=== PATIENT | male | born 1940 | race Caucasian/White ===

== ENCOUNTER 2017-06-24 20:01 | Emergency (ER) | payer MEDICARE ==
[~2017-06-24] VITALS: Ht 188 cm; Wt 95.3 kg
[2017-06-24] MEDS ORDERED: KETOROLAC TROMETHAMINE 30 MG/ML VIAL IM STA (20:20)
[2017-06-24] MEDS ORDERED: DEXAMETHASONE SOD PHOS 10 MG/1 ML VIAL INJ ONE (20:30)
[2017-06-24] MEDS ORDERED: COLCHICINE 0.6 MG TAB PO STA (21:10)
--- NOTE | 2017-06-24 21:30 | Diagnostic Imaging Report ---
WRIST COMPLETE LEFT HISTORY: Wrist pain and swelling COMPARISON: None FINDINGS: Bones: No displaced fracture. Osseous alignment is within normal limits. Mild mineralization Joints: The joint spaces are well-maintained. Soft tissues: Diffuse soft tissue swelling more significant at the dorsal aspect of the left wrist IMPRESSION: 1. No acute osseous abnormality. 2. Soft tissue swelling at the dorsum of the left wrist Signed by: Dr. Wilson Scott M.D. on 06/24/2017 9:26 PM
[2017-06-24 22:15] VITALS: BP 162/84
== END 2017-06-24 22:46 | disposition home or self-care (01) ==
LOC: ER 20:01
DX: M25.532 Pain in left wrist (principal); M10.032 Idiopathic gout, left wrist; I10 Essential (primary) hypertension; E03.9 Hypothyroidism, unspecified
CPT/HCPCS: 36415; 73110; 84550; 96372; 99284; J1100; J1885

== ENCOUNTER 2017-08-31 10:08 | Emergency (ER) | payer MEDICARE ==
[~2017-08-31] VITALS: Ht 188 cm; Wt 95.3 kg
--- OUTSIDE RECORDS SUMMARY | 2017-08-31 10:10 | XMS REPORT ---
Author [facility] Address Unknown Phone Unavailable Care Team Providers Care Outbound Telemarketer Name Role Phone ADITHYA GALVEZ Unavailable Unavailable Problems This patient has no known problems. Allergies, Adverse Reactions, Alerts This patient has no known allergies or adverse reactions. Medications This patient has no known medications. Results Test Description Test Time Test Comments Text Results Atomic Results Result Comments WRIST COMPLETE LEFT [place] [id number] Patient Name: Bethel SHAH JR MR #: [id number] : 1940 Age/Sex: 76/M Req # : [id number] Adm Physician: Ordered by: ADITHYA GALVEZ MD Report #: [id number] Location: ER Room/Bed: Procedure: [id number] DX/WRIST COMPLETE LEFT Exam Date: Exam Time: REPORT STATUS: Signed WRIST COMPLETE LEFT HISTORY: Wrist pain and swelling COMPARISON: None FINDINGS: Bones: No displaced fracture. Osseous alignment is within normal limits. Mild mineralization Joints: The joint spaces are well-maintained. Soft tissues: Diffuse soft tissue swelling more significant at the dorsal aspect of the left wrist IMPRESSION: 1. No acute osseous abnormality. 2. Soft tissue swelling at the dorsum of the left wrist Signed by: Dr. Wilson Scott M.D. on 06/24/2017 9:26 PM Dictated By: WILSON BREAUX MD 25 Transcribed By: LAZARUS on 06/24/172125 COPY TO: ADITHYA GALVEZ MD
[2017-08-31] MEDS ORDERED: MORPHINE SULFATE 2 MG/ML SYR IV STA (10:25)
[2017-08-31] MEDS ORDERED: ONDANSETRON HCL INJ 2 MG/ML VIAL IV STA (10:25)
[2017-08-31] MEDS ORDERED: SODIUM CHLORIDE 0.9% 1000ML 1,000 ML IV STA (10:25)
[2017-08-31] MEDS ORDERED: COLCHICINE 0.6 MG TAB PO ONE ×2 (10:30→11:00)
[2017-08-31 11:16] LABS: BASOPHILS % 0.3 % (0.0-1.0); EOSINOPHILS % 0.2 % (0.0-6.0); HEMATOCRIT 40.6 % (38.2-49.6); HEMOGLOBIN 13.4 g/dL (14.0-18.0); LYMPHOCYTES # (AUTO) 1.7 (1.0-3.2); LYMPHOCYTES % 17.9 % (18.0-39.1); MEAN CORPUSCULAR HEMOGLOBIN 30.9 pg (28-32); MEAN CORPUSCULAR VOLUME 93.5 fL (81-99); MONOCYTES # (AUTO) 1.4 (0.2-0.8); MONOCYTES % 14.4 % (4.4-11.3); NEUTROPHILS # (AUTO) 6.4 (2.1-6.9); NEUTROPHILS % 66.6 % (38.7-80.0); PLATELET COUNT 178 x10e3/uL (140-360); RED BLOOD COUNT 4.34 x10e6/uL (4.3-5.7); RED CELL DISTRIBUTION WIDTH 13.4 % (11.7-14.4)
--- NOTE | 2017-08-31 11:22 | Diagnostic Imaging Report ---
EXAM: WRIST COMPLETE RIGHT DATE: 08/31/2017 10:25 AM INDICATION: Wrist/thumb pain. Possible gout. 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 There is a tiny well-corticated ossific density adjacent to the ulnar styloid. No acute fracture is identified. No significant soft tissue abnormality is present. Faint lucency in the scaphoid waist is well-corticated suggesting vascular channel. IMPRESSION: Chronic appearing changes as above. No definite acute finding. Signed by: Dr. Ronald Knight MD on 08/31/2017 11:19 AM
[2017-08-31 11:35] LABS: ALBUMIN 3.3 g/dL (3.5-5.0); ANION GAP 14.1 mmol/L (8-16); CALCIUM 8.9 mg/dL (8.4-10.2); CREATININE, SERUM 2.2 mg/dL (0.72-1.25); MAGNESIUM 1.6 MG/DL (1.3-2.1); POTASSIUM 4.1 mmol/L (3.5-5.1)
== END 2017-08-31 12:25 | disposition home or self-care (01) ==
LOC: ER 10:08
DX: M25.531 Pain in right wrist (principal); M10.031 Idiopathic gout, right wrist; N18.9 Chronic kidney disease, unspecified; I10 Essential (primary) hypertension; E11.9 Type 2 diabetes mellitus without complications; I51.9 Heart disease, unspecified
CPT/HCPCS: 36415; 73110; 80053; 83735; 84550; 85025; 99284; J2270; J2405; J7030

== ENCOUNTER 2018-03-05 19:20 | Inpatient (IN) | payer MEDICARE ==
[~2018-03-05] VITALS: Ht 188 cm; Wt 92.2 kg
[2018-03-05] MEDS ORDERED: HYDRALAZINE HCL 20 MG/ML VIAL ONE (20:03)
[2018-03-05] MEDS ORDERED: HYDRALAZINE HCL 20 MG/ML VIAL IV STA (20:05)
--- NOTE | 2018-03-05 20:36 | Diagnostic Imaging Report ---
EXAMINATION: Head CT without contrast. HISTORY:Headache. COMPARISON:None. TECHNIQUE: Multidetector axial images were obtained from the foramen magnum to the vertex without contrast. The images were reconstructed using brain and bone algorithms. Thin section brain images were reformatted into coronal and sagittal planes. Dose modulation, iterative reconstruction, and/or weight based adjustment of the mA/kV was utilized to reduce the radiation dose to as low as reasonably achievable. Intravenous contrast: None IMAGE QUALITY: Acceptable. FINDINGS: Skull/scalp: No lytic or blastic. lesions. No surgical changes. Parenchyma: Nonspecific bilateral frontoparietal patchy white matter hypodensity are likely related to small vessel ischemic changes. No acute hemorrhage, mass or acute major vascular territorial infarct. Arteries: No density suggestive of thrombosis. Dural sinuses: No abnormal density suggestive of thrombosis. Ventricles: Moderate compensated dilatation due to volume loss. No hydrocephalus. Extra-axial spaces: No abnormal density. Brain volume: Generalized age-related cerebral volume loss. Craniocervical junction: No mass, Chiari malformation, or basilar invagination. Sella: No mass. Paranasal/mastoid sinuses: Imaged portions unremarkable. IMPRESSION: No acute intracranial abnormality. Mild supratentorial white matter microvascular ischemic changes. Generalized age-related cerebral volume loss. Signed by: Dr. Delma Romero M.D. on 03/05/2018 8:33 PM
[2018-03-05 20:43] LABS: BASOPHILS % 0.5 % (0.0-1.0); EOSINOPHILS # (AUTO) 0.1 (0.0-0.4); EOSINOPHILS % 1.1 % (0.0-6.0); HEMATOCRIT 40.2 % (38.2-49.6); HEMOGLOBIN 13.2 g/dL (14.0-18.0); LYMPHOCYTES # (AUTO) 1.6 (1.0-3.2); MEAN CORPUSCULAR HEMOGLOBIN 31.1 pg (28-32); MEAN CORPUSCULAR HGB CONC 32.8 g/dL (31-35); MEAN CORPUSCULAR VOLUME 94.6 fL (81-99); NEUTROPHILS # (AUTO) 6.1 (2.1-6.9); NEUTROPHILS % 68.6 % (38.7-80.0); PLATELET COUNT 203 x10e3/uL (140-360); RED BLOOD COUNT 4.25 x10e6/uL (4.3-5.7); RED CELL DISTRIBUTION WIDTH 13.7 % (11.7-14.4)
--- NOTE | 2018-03-05 20:54 | Diagnostic Imaging Report ---
EXAMINATION: PA and lateral views of the chest. COMPARISON: None CLINICAL HISTORY: Left-sided weakness, neck pain, chest pain DISCUSSION: Lines/tubes: None. Lungs: Lungs are well-inflated. Ill-defined patchy opacity in the right lower lung on the frontal view,. Rest of the lungs is grossly clear. Pleura: There is no pleural effusion or pneumothorax. Heart and mediastinum: Cardiac silhouette is borderline to mildly enlarged. Pulmonary vasculature is normal. Bones and soft tissues: No acute bony abnormalities. Degenerative changes in the thoracic spine IMPRESSION: 1. Ill-defined patchy opacity in the right lower lung, which may represent pneumonia, in the appropriate clinical setting. Atelectasis or scarring are secondary considerations. Signed by: Dr. Venkat Mata M.D. on 03/05/2018 8:50 PM
[2018-03-05 21:01] LABS: ALBUMIN 3.4 g/dL (3.5-5.0); ALBUMIN/GLOBULIN RATIO 0.9 (0.8-2.0); ANION GAP 16.5 mmol/L (8-16); CALCIUM 9.2 mg/dL (8.4-10.2); CREATININE, SERUM 2.55 mg/dL (0.72-1.25); POTASSIUM 4.5 mmol/L (3.5-5.1)
[2018-03-05 21:08] LABS: CREATINE KINASE MB 1.6 ng/mL (0-5.0)
[2018-03-05] MEDS ORDERED: ASPIRIN ENTERI325 MG PO (22:00)
[2018-03-05] MEDS ORDERED: VITAMIN D31000 UNI1 PO (22:00)
[2018-03-05] MEDS ORDERED: TORSEMIDE10 MG PO (22:00)
[2018-03-05] MEDS ORDERED: VITAMIN B-1100 M1 PO (22:00)
[2018-03-06] MEDS: HYDRALAZINE HCL 20 MG/ML VIAL IV PRN ×3 (00:14→09:34)
[2018-03-06 01:30] VITALS: BP 135/63
[2018-03-06 04:00] VITALS: BP 186/78
[2018-03-06 08:00] VITALS: BP 172/79
[2018-03-06] MEDS: ACETAMINOPHEN 325 MG TAB PO PRN (09:34)
[2018-03-06] MEDS ORDERED: NIFEDIPINE CR 30 MG TAB PO SCH (11:45)
[2018-03-06 12:00] VITALS: BP 191/76
[2018-03-06] MEDS: LABETALOL HCL 100 MG TAB PO SCH ×2 (12:14→21:51)
[2018-03-06] MEDS ORDERED: ASPIRIN 325 MG TAB PO SCH (12:45)
--- NOTE | 2018-03-06 14:23 | History and Physical ---
PRIMARY CARE PHYSICIAN: Dr. Conrad CHIEF COMPLAINT: Right scalp pain. HISTORY OF PRESENT ILLNESS: This is a 77-year-old man with a history of pneumonia, ambulatory dysfunction and hypertension, now developing right scalp pain. He denies any dizziness, chest pain, or vision changes. He admits to some shortness of breath. Denies any fever, chills or sweats. Denies any focal weakness. Here CT scan of the brain was done, which was negative. He was found to have pneumonia. The patient was also confused on admission. He is admitted for further evaluation and management. PAST MEDICAL HISTORY: Hypertension, pneumonia, ambulatory dysfunction. PAST SURGICAL HISTORY: None. ALLERGIES: PER ELECTRONIC MEDICAL RECORD. FAMILY HISTORY/SOCIAL HISTORY: Patient is . He has 1 child. Quit alcohol. No cigarettes. MEDICATIONS: Per electronic medical record. REVIEW OF SYSTEMS: Denies any dizziness or chest pain. Denies any fever, chills, sweats, nausea, vomiting, diarrhea, leg pain. PHYSICAL EXAMINATION VITAL SIGNS: Have been reviewed. GENERAL: A tired-appearing man resting in bed. HEENT: Anicteric. He has right scalp tenderness, but no bruising. CARDIOVASCULAR: Normal S1 and S2. LUNGS: He has reduced breath sounds at the bases. ABDOMEN: Soft, nontender and nondistended. EXTREMITIES: No edema or calf tenderness. NEUROLOGICAL: He is awake, alert and appropriate. Oriented times 3. He does have facial asymmetry. His right arm is weak of 4/5 compared to his left. He has a small baseline tremor. SKIN: Dry. PSYCHIATRIC: Flat affect. LABS: Reviewed. MEDICATIONS: Reviewed. ASSESSMENT: This is a 77-year-old man with: 1. Acute metabolic encephalopathy. 2. Hypertensive emergency. 3. Transient ischemic attack. 4. Right arm weakness. 5. Facial asymmetry. 6. Acute kidney injury. 7. Overweight state. 8. Right lung pneumonia. 9. Ambulatory dysfunction. PLAN 1. Obtain MRI of the head and neck. 2. PT consultation. 3. Check lipid panel. 4. Rehydrate the patient and reassess renal function. 5. Control blood pressure with beta magda and calcium channel magda. 6. Obtain a urine toxicology and urinalysis. 7. Obtain alcohol level. 8. Utilize aspirin 81 mg daily. 9. Use Lovenox and Pepcid for prophylaxis. 10. Physical therapy consultation. Follow up MRI. Job#: [id number] RI
[2018-03-06 14:45] LABS: THYROID STIMULATING HORMONE 3.487 uIU/mL (0.350-4.940)
[2018-03-06] MEDS: TRAMADOL/APAP 37.5MG-325MG TAB PO PRN ×2 (15:32→23:32)
[2018-03-06 16:00] VITALS: BP 140/62
--- NOTE | 2018-03-06 17:32 | Diagnostic Imaging Report ---
Examination: MRI BRAIN WITHOUT CONTRAST History: Right arm weakness and facial asymmetry Comparison studies: Head CT performed March 05, 2018. Technique: Sagittal T2; axial DWI, FLAIR, T1. Intravenous contrast: None Findings: Scalp: No abnormal signal. No masses. Bone marrow: Normal in signal intensity. Brain volume: Mild volume loss for age. Ventricles: Ex vacuo dilatation. No hydrocephalus. Extra-axial spaces: No abnormalities. Parenchyma: There are periventricular confluent areas of T2/FLAIR hyperintensity, nonspecific. Chronic lacunar infarcts are demonstrated in the left striatocapsular region and right mid cerebellum. No masses, hemorrhage, or acute vascular insults. Suprasellar and sellar region: No abnormalities. Craniocervical junction: No abnormalities. The foramen magnum is patent. No Chiari malformations. Vessels: Normal flow-voids in the arteries and sinuses. IMPRESSION: 1. No acute intracranial abnormalities. 2. Mild chronic microvascular ischemic change and volume loss. 3. Chronic lacunar infarcts, as above. Signed by: Dr. Kacy Wells M.D. on 03/06/2018 5:29 PM
[2018-03-06] MEDS: THIAMINE HCL 100 MG TAB PO SCH (17:34)
[2018-03-06] MEDS: ASPIRIN 81 MG ENTERIC COATED PO SCH (17:34)
[2018-03-06] MEDS: FAMOTIDINE 20 MG TAB PO SCH (17:35)
[2018-03-06] MEDS: ENOXAPARIN SOD INJ 40 MG/0.4 ML SYR SC SCH (17:35)
--- NOTE | 2018-03-06 17:39 | Diagnostic Imaging Report ---
Examination: MRA NECK AND HEAD WITHOUT CONTRAST History: Intense headaches of the right side. Confusion. Comparison studies: None Technique: 2-D and 3-D [id number] MR angiograms of the cervical and intracranial circulations were obtained. MIP images of the arteries were isolated into the right and left cervical circulations and anterior and posterior intracranial circulations, 180 degree projections. Sagittal and coronal MPR images, and axial source images are available for evaluation. Degree of stenosis at the carotid bulbs, if present, will be calculated using NASCET criteria where the smallest diameter at the location of stenosis is compared to the diameter of the more distal non-diseased vessel lumen. Findings: Cervical MRA Grade due to motion. Aortic arch: Normal 3 great vessel origin. Patent. Internal carotid arteries: No large flow abnormalities at the origins of the common carotid arteries, the cervical carotid bifurcations or in the cervical segments. Vertebral arteries: The origin and V1 segment of the right vertebral artery is not visualized due to motion artifact. No flow abnormalities at the left vertebral artery origin, left V1 segment or through the bilateral V2 and V3 segments. Intracranial MRA: Internal carotid arteries: Patent.. Anterior cerebral arteries: Patent A1 and A2 segments. Middle cerebral arteries: Patent M1 and M2 segments. Vertebrobasilar circulation: Patent. Posterior cerebral arteries: Patent bilaterally.. Anatomical variants: Anterior communicating arteries: Patent. Posterior communicating arteries: Patent. Vertebral arteries:Left dominant. IMPRESSION: 1. Despite degradation from motion artifact, no large cervical arterial stenosis or occlusion, excluding the origin and V1 segment of the right vertebral artery, which is not clearly visualized. 2. No intracranial arterial stenosis or occlusion or vascular malformation. Signed by: Dr. Kacy Wells M.D. on 03/06/2018 5:36 PM
[2018-03-06 20:49] VITALS: BP 156/67
[2018-03-06] MEDS: NIFEDIPINE CR 30 MG TAB PO SCH (21:51)
[2018-03-07] VITALS: BP 156/67
[2018-03-07 01:07] VITALS: BP 109/54
[2018-03-07 04:22] VITALS: BP 140/67
[2018-03-07 08:00] VITALS: BP 160/69
[2018-03-07] MEDS ORDERED: NON-FORMULARY MEDICATION (Thiamine Mononitrate (Vitamin B-1) 100 MG) PO SCH (09:00)
[2018-03-07] MEDS: LABETALOL HCL 100 MG TAB PO SCH ×2 (09:30→20:28)
[2018-03-07] MEDS: ASPIRIN 81 MG ENTERIC COATED PO SCH (09:30)
[2018-03-07] MEDS: THIAMINE HCL 100 MG TAB PO SCH (09:30)
[2018-03-07] MEDS: NIFEDIPINE CR 30 MG TAB PO SCH ×2 (09:30→20:27)
[2018-03-07] MEDS: FAMOTIDINE 20 MG TAB PO SCH ×2 (09:30→17:16)
[2018-03-07 12:00] VITALS: BP 140/63
[2018-03-07] MEDS: ENOXAPARIN SOD INJ 40 MG/0.4 ML SYR SC SCH (17:16)
[2018-03-07] MEDS: TRAMADOL/APAP 37.5MG-325MG TAB PO PRN (20:28)
[2018-03-07 21:00] VITALS: BP 148/67
[2018-03-07] MEDS ORDERED: HALOPERIDOL LACTATE 5 MG/ML VIAL IM ONE (23:30)
[2018-03-08] VITALS: BP 127/60
--- NOTE | 2018-03-08 00:13 | Progress Note ---
DATE: March 07, 2018 TIME: 1:15 p.m. OVERNIGHT: No events reviewed. REVIEW OF SYSTEMS: Not obtained. OBJECTIVE VITAL SIGNS: Reviewed. GENERAL: Tired-appearing man, resting in bed. HEENT: Anicteric. CARDIOVASCULAR: Normal S1, S2. No murmur. LUNGS: Normal breath sounds. ABDOMEN: Soft, nontender, nondistended. EXTREMITIES: No edema. SKIN: Dry. PSYCHIATRIC: Flat affect. NEUROLOGICAL: He is awake, but appears confused. He does have 4/5 motor strength in his right arm. He does have a baseline trauma. He has a facial asymmetry. ASSESSMENT: A 77-year-old man with; 1. Acute metabolic encephalopathy. 2. Hypertensive emergency. 3. TIA. 4. Right arm weakness. 5. Facial asymmetry. 6. Acute kidney injury. 7. Overweight state. 8. Right lung pneumonia. 9. Ambulatory dysfunction. PLAN 1. Alcohol testing was negative. 2. MRI was negative. 3. Skilled facility placement. 4. I discussed case with Priscila at bedside. 5. Continue medication regimen. Job#: [id number] SHAHEEN
[2018-03-08] MEDS: ACETAMINOPHEN 325 MG TAB PO PRN (03:00)
[2018-03-08 04:00] VITALS: BP 126/62
[2018-03-08] MEDS: NIFEDIPINE CR 30 MG TAB PO SCH ×2 (09:00→21:00)
[2018-03-08] MEDS: LABETALOL HCL 100 MG TAB PO SCH ×2 (09:00→21:00)
[2018-03-08 09:17] VITALS: BP 134/64
[2018-03-08 10:01] LABS: BASOPHILS % 0.5 % (0.0-1.0); EOSINOPHILS % 0.4 % (0.0-6.0); HEMATOCRIT 37.7 % (38.2-49.6); HEMOGLOBIN 11.9 g/dL (14.0-18.0); LYMPHOCYTES # (AUTO) 1.2 (1.0-3.2); LYMPHOCYTES % 14.9 % (18.0-39.1); MEAN CORPUSCULAR HEMOGLOBIN 30.5 pg (28-32); MEAN CORPUSCULAR HGB CONC 31.6 g/dL (31-35); MEAN CORPUSCULAR VOLUME 96.7 fL (81-99); MONOCYTES % 12.6 % (4.4-11.3); NEUTROPHILS # (AUTO) 5.7 (2.1-6.9); NEUTROPHILS % 70.8 % (38.7-80.0); PLATELET COUNT 188 x10e3/uL (140-360); RED CELL DISTRIBUTION WIDTH 13.9 % (11.7-14.4)
[2018-03-08 10:17] LABS: ANION GAP 15.8 mmol/L (8-16); CALCIUM 9.3 mg/dL (8.4-10.2); CREATININE, SERUM 2.41 mg/dL (0.72-1.25); POTASSIUM 4.8 mmol/L (3.5-5.1)
[2018-03-08 12:17] VITALS: BP 140/64
[2018-03-08 14:05] LABS: BILIRUBIN,URINE NEGATIVE (NEGATIVE); CLARITY,URINE CLEAR (CLEAR); COLOR,URINE YELLOW (YELLOW); KETONES,URINE NEGATIVE (NEGATIVE); LEUKOCYTE ESTERASE ,URINE NEGATIVE (NEGATIVE); NITRITE,URINE NEGATIVE (NEGATIVE); PROTEIN,URINE DIPSTICK NEGATIVE (NEGATIVE); URINE UROBILINOGEN 0.2 mg/dL (0.2 - 1)
[2018-03-08 14:07] LABS: AMPHETAMINES SCREEN,URINE NEGATIVE (NEGATIVE); BENZODIAZEPINES SCREEN,URINE NEGATIVE (NEGATIVE); PHENCYCLIDINE SCREEN,URINE NEGATIVE (NEGATIVE)
[2018-03-08] MEDS: ASPIRIN 81 MG ENTERIC COATED PO SCH (14:08)
[2018-03-08] MEDS: TRAMADOL/APAP 37.5MG-325MG TAB PO PRN (14:08)
[2018-03-08] MEDS: THIAMINE HCL 100 MG TAB PO SCH (14:08)
[2018-03-08] MEDS: FAMOTIDINE 20 MG TAB PO SCH ×2 (14:08→18:08)
[2018-03-08 14:19] LABS: BACTERIA,URINE RARE /HPF; EPITHELIAL CELLS,URINE RARE /LPF; RBC,URINE 0-5 /HPF (0-5); WBC,URINE (MAN) 0-5 /HPF (0-5)
[2018-03-08] MEDS: HYDRALAZINE HCL 20 MG/ML VIAL IV PRN (14:50)
[2018-03-08 16:24] VITALS: BP 186/92
[2018-03-08] MEDS: ENOXAPARIN SOD INJ 40 MG/0.4 ML SYR SC SCH (18:08)
[2018-03-08] MEDS ORDERED: SODIUM CHLORIDE 0.9% 1000ML 1,000 ML IV SCH (18:45)
[2018-03-08] MEDS ORDERED: SUMATRIPTAN SUCCINATE 25 MG TAB PO PRN (18:45)
[2018-03-08] MEDS: LORAZEPAM INJ 2 MG/ML VIAL IV PRN (19:18)
[2018-03-08 20:00] VITALS: BP 113/92
--- NOTE | 2018-03-08 20:39 | Progress Note ---
DATE: March 07, 2018 TIME: 1820. OVERNIGHT: Patient with significant agitation. Haldol p.r.n. provided with poor response per RN. Family relates patient with slow narrow responses throughout half the day, now resolved. REVIEW OF SYSTEMS: Unable to obtain. Patient is altered. OBJECTIVE VITAL SIGNS: T 97.2, P 66, respiratory rate 16, BP 186/92, and SpO2 of 98% on room air. GENERAL APPEARANCE: This is a tired-appearing, well-groomed, disheveled man, resting in bed. HEENT: Normocephalic. Nares patent. Oral mucosa dry and appears to be intact. Ears normal. Trachea midline. No JVD present. Patient is mouth breathing. CV: S1 and S2 without extra cardiac sounds. Regular rate. LUNGS: BBS-CTA. ABDOMEN: Soft, nontender, and nondistended. Multiple scarring noted to abdomen, old surgical scars. EXTREMITIES: 1+ edema in bilateral lower extremities. SKIN: Dry. PSYCHIATRIC: Flat affect. NEUROLOGICAL: Patient is awake and answers to name only. Follows one-step commands with multiple prompts and is able to demonstrate bilateral online content coordinator, right grater than left. Patient is willing to open eyes for exam. Patient is picking at bedding and somewhat agitated during exam. MEDICATIONS: Pepcid 20 mg p.o. b.i.d., Lovenox 40 mg daily, q.4 hours p.r.n. hydralazine, p.r.n. Ultram, daily thiamine, p.o. daily aspirin, p.r.n. Tylenol, q.12 nifedipine, and q.12 labetalol. LABS: NA 140, K 4.8, CO2 of 21, CL 108, GAP 15.5, BUN 42, creatinine 2.41, and estimated GFR is 26. WBCs 8, H and H is 11.9 and 37.7, and platelets 188. Prior toxicologies in urine were negative. ASSESSMENT AND PLAN: This is a 77-year-old man with 1. Acute metabolic encephalopathy with acute kidney injury. We will provide IV fluids and initiate Galindo due to RN report of 600 mL urinary retention during straight cath for urine. We will maintain the Galindo to avoid obstructive kidney involvement. 2. Hypertensive emergency. P.r.n. hydralazine is controlling as BP most of the day was in the 120s to 140s prior to episodes of agitation. 3. Transient ischemic attack with right arm weaknesses and facial asymmetry. Skilled facility placement. 4. Overweight state. 5. Right lung pneumonia. Follow up chest x-ray in the a.m. to verify . White count within normal limits. The patient was without cough or extra respiratory sounds or O2 desaturation. 6. Ambulatory function. SNF as above. 7. Prophylaxis. Lovenox and Pepcid. DISPOSITION: An extensive discussion with family at bedside this evening. All questions answered. Extensive discussion with RN, staff concerning patient's needs. New orders noted. Follow up plan in a.m. Dictated by: Ileana Garibay NP Job#: [id number] SHAHEEN
[2018-03-09] VITALS (17 sets, daily range): BP systolic 128–198; BP diastolic 61–98
[2018-03-09] MEDS: HYDRALAZINE HCL 20 MG/ML VIAL IV PRN ×3 (00:36→18:04)
[2018-03-09] MEDS: LORAZEPAM INJ 2 MG/ML VIAL IV PRN ×2 (01:20→14:45)
[2018-03-09] MEDS ORDERED: SODIUM CHLORIDE 0.45% 1,000 ML IV SCH (05:30)
[2018-03-09 05:31] LABS: BASOPHILS % 0.4 % (0.0-1.0); HEMATOCRIT 36.1 % (38.2-49.6); HEMOGLOBIN 11.6 g/dL (14.0-18.0); LYMPHOCYTES % 11.8 % (18.0-39.1); MEAN CORPUSCULAR HEMOGLOBIN 31.5 pg (28-32); MEAN CORPUSCULAR HGB CONC 32.1 g/dL (31-35); MEAN CORPUSCULAR VOLUME 98.1 fL (81-99); MONOCYTES # (AUTO) 0.8 (0.2-0.8); MONOCYTES % 9.5 % (4.4-11.3); NEUTROPHILS # (AUTO) 6.3 (2.1-6.9); NEUTROPHILS % 77.6 % (38.7-80.0); PLATELET COUNT 177 x10e3/uL (140-360); RED BLOOD COUNT 3.68 x10e6/uL (4.3-5.7); RED CELL DISTRIBUTION WIDTH 13.7 % (11.7-14.4)
[2018-03-09 05:51] LABS: ALBUMIN 2.9 g/dL (3.5-5.0); ALBUMIN/GLOBULIN RATIO 0.8 (0.8-2.0); ANION GAP 18.7 mmol/L (8-16); CALCIUM 8.3 mg/dL (8.4-10.2); CREATININE, SERUM 2.21 mg/dL (0.72-1.25); POTASSIUM 4.7 mmol/L (3.5-5.1)
--- NOTE | 2018-03-09 06:17 | Diagnostic Imaging Report ---
CHEST SINGLE (PORTABLE), 03/09/2018 5:00 AM Technique: CHEST SINGLE (PORTABLE) Comparison: 03/05/2018. Clinical history: \S\follow up; poss aspiration event \[id number] \S\529 Findings: See Impression Impression: 1. Stable cardiomediastinal silhouette. Aortic calcification. 2. Bibasilar opacities suspicious for aspiration. 3. No significant effusion. No pneumothorax. Signed by: Dr Eulalia Valladares MD on 03/09/2018 6:14 AM
[2018-03-09] MEDS: FAMOTIDINE 20 MG TAB PO SCH ×3 (07:30→16:30)
[2018-03-09] MEDS: SODIUM BICARBONATE 650 MG TAB PO SCH ×4 (09:00→23:14)
[2018-03-09] MEDS: LABETALOL HCL 100 MG TAB PO SCH ×3 (09:00→23:15)
[2018-03-09] MEDS: ASPIRIN 81 MG ENTERIC COATED PO SCH ×2 (09:00→09:14)
[2018-03-09] MEDS ORDERED: SODIUM BICARBONATE 650 MG TAB PO SCH (09:00)
[2018-03-09] MEDS: THIAMINE HCL 100 MG TAB PO SCH ×2 (09:00→09:15)
[2018-03-09] MEDS: NIFEDIPINE CR 30 MG TAB PO SCH ×3 (09:00→21:00)
--- NOTE | 2018-03-09 09:59 | Progress Note ---
DATE: March 09, 2018 TIME: 7:42 a.m. OVERNIGHT: The patient is confused, agitated and aggressive. Given Haldol and enema with improvement in symptoms. The patient is resting comfortably. The patient has family member at bedside. Upset that he is not in his usual state. REVIEW OF SYSTEMS: Unobtainable. PHYSICAL EXAMINATION VITAL SIGNS: Reviewed. GENERAL: A tired-appearing man resting in bed. HEENT: Anicteric. CARDIOVASCULAR: Normal S1 and S2. LUNGS: Moderate breath sounds. ABDOMEN: Soft, nontender and nondistended. EXTREMITIES: No edema. SKIN: Dry. PSYCHIATRIC: Unable to assess. LABS: Reviewed. MEDICATIONS: Reviewed. ASSESSMENT: This is a 77-year-old man with: 1. Acute metabolic encephalopathy. 2. Sundowning. 3. Hypertensive emergency. 4. Transient ischemic attack. 5. Overweight state. 6. Right lung pneumonia. 7. Ambulatory dysfunction. 8. Acute kidney injury in the setting of chronic kidney disease, stage unknown. PLAN 1. Change his fluids to half normal saline. 2. Add bicarb. 3. Obtain urinalysis. 4. Obtain ammonia level. 5. I have discussed the case with the patient's family member at bedside extensively. I have also discussed the MRI findings, which were negative for any acute findings. She is upset about not having answers, although I provided all the answers that are currently available to me. Will obtain a urinalysis and ammonia level now. Continue with care. I have discussed with her that she is free to have him transferred to another attending if she is dissatisfied with care. She states that she is not interested in doing that. 6. Continue current care and medication regimen. Follow up labs this afternoon. Job#: [id number] SHOSHANA
[2018-03-09 10:38] LABS: ABG HCO3 18 mmol/L (23-28); ABG PCO2 39 mmHg (41-51); ABG PH 7.27 (7.31-7.41); ABG PO2 58 mmHg (80-105)
--- NOTE | 2018-03-09 10:58 | Diagnostic Imaging Report ---
PROCEDURE:US RETROPERITONEAL ( KIDNEY ). COMPARISON:None. INDICATIONS:KAVITA VS CKD TECHNIQUE: Townsend-scale and color sonographic images of the bilateral kidneys and bladder where obtained in transverse and longitudinal planes. FINDINGS: RIGHT KIDNEY: 12.1 cm in length, cortical thickness 1.5 cm Cysts: None Solid masses: None Stones: None Hydronephrosis: None Echogenicity: Increased renal cortical echogenicity LEFT KIDNEY: 9.8 cm in length, cortical thickness 1.3 cm Cysts: None Solid masses: None Stones: None Hydronephrosis: None Echogenicity: Increased renal cortical echogenicity. Bladder: Collapsed around a Galindo catheter Prostate: Not visualized CONCLUSION: Increased renal cortical echogenicity compatible with medical renal disease. Dictated by: Davy Escobedo M.D. on 03/09/2018 at 11:06 Electronically approved by: Davy Escobedo M.D. on 03/09/2018 at 11:06
[2018-03-09] MEDS ORDERED: SODIUM BICARBONATE 8.4% 100 ML in SODIUM CHLORIDE 0.45% 1,000 ML IV SCH (11:00)
--- NOTE | 2018-03-09 11:00 | Diagnostic Imaging Report ---
PROCEDURE: CHEST SINGLE (PORTABLE) COMPARISON: Earlier 03/09/2018. INDICATIONS: RESPIRATORY DISTRESS FINDINGS: Worsening bibasilar airspace opacities right greater than left. No sizable pleural effusion. Stable cardiomediastinal contour with prominence of the pulmonary interstitial markings. No acute osseous abnormalities. CONCLUSION: worsening bibasilar airspace opacities, concerning for aspiration as previously discussed. Stable enlargement of the cardiac silhouette with pulmonary venous congestion. Dictated by: Davy Escobedo M.D. on 03/09/2018 at 11:09 Electronically approved by: Davy Escobedo M.D. on 03/09/2018 at 11:09
[2018-03-09] MEDS ORDERED: AZITHROMYCIN 500MG/NS 250 ML 250 ML IV ONE (13:15)
[2018-03-09] MEDS ORDERED: HEPARIN SOD (PORCINE) 5,000 UNIT/ML VIAL SC SCH (14:00)
[2018-03-09] MEDS: LACTULOSE SYRUP 20 GM/30 ML UDC PO SCH ×2 (14:00→23:15)
[2018-03-09] MEDS ORDERED: SODIUM CHLORIDE 0.9% 250ML 250 ML ONE (14:39)
[2018-03-09 14:40] LABS: INR 0.97; PROTHROMBIN TIME 13.8 seconds (11.9-14.5)
[2018-03-09 14:53] LABS: CLARITY,URINE CLOUDY (CLEAR); COLOR,URINE YELLOW (YELLOW); LEUKOCYTE ESTERASE ,URINE TRACE (NEGATIVE); NITRITE,URINE NEGATIVE (NEGATIVE); PROTEIN,URINE DIPSTICK TRACE (NEGATIVE)
[2018-03-09 14:54] LABS: BILIRUBIN,URINE NEGATIVE (NEGATIVE); KETONES,URINE TRACE (NEGATIVE); URINE UROBILINOGEN 0.2 mg/dL (0.2 - 1)
[2018-03-09 15:00] LABS: BACTERIA,URINE MODERATE /HPF; EPITHELIAL CELLS,URINE FEW /LPF; RBC,URINE >50 /HPF (0-5)
[2018-03-09] MEDS ORDERED: SODIUM BICARBONATE 8.4% 75 ML in DEXTROSE 5%/0.45% SOD CHL 1,000 ML IV SCH (15:00)
--- NOTE | 2018-03-09 15:31 | Consultation ---
DATE OF CONSULTATION: RENAL CONSULTATION Thank you for the consultation. HISTORY OF PRESENT ILLNESS: Mr. Patricia Jr., is a pleasant, 77-year-old male with a past medical history significant for hypertension, history of pneumonia, ambulatory dysfunction. Apparently he came into the hospital with right scalp pain. No dizziness, chest pain or vision changes. He does have some shortness of breath. He was on the floor and then transferred over to the IMCU unit because he was having worsening shortness of breath, possibly aspiration pneumonia. Chest x-ray is consistent with bilateral pulmonary opacities, could be consistent with pulmonary edema. Also has had worsening kidney function; however, creatinine is starting to improve at 2.2 today. Bicarb is 17. Renal consultation has been asked for the management of his metabolic acidosis as well as the management of his fluid overload. The patient is currently on BiPAP. He is having some difficulty breathing. No fever, no chills, no abdominal pain, no diarrhea. He does have altered mentation. PAST MEDICAL HISTORY: As outlined above. ALLERGIES: CODEINE. MEDICATIONS: Reviewed per electronic medical record. REVIEW OF SYSTEMS: As per HPI, otherwise all systems were negative. FAMILY HISTORY: Noncontributory. SOCIAL HISTORY: No tobacco and no alcohol use. PHYSICAL EXAMINATION VITAL SIGNS: Blood pressure 198/77, 65 pulse, afebrile. HEENT: No cervical lymphadenopathy. NECK: Supple without masses. No obvious JVD. Moist-appearing oral mucosa. SKIN: Moist with good skin turgor. CHEST: Chest wall with good expansion. No chest wall tenderness. LUNGS: Rales in bilateral lung jeffrey. CARDIOVASCULAR: S1, S2. No obvious gallop or murmur. ABDOMEN: Soft. Positive bowel sounds. Nontender. EXTREMITIES: Evidence of 1 to 2+ edema bilaterally over the lower extremities. No clubbing, no cyanosis. NEUROLOGIC: Difficult to assess. The patient is not completely cooperative with neurological exam. LABS: Sodium 142, potassium 4.7, chloride 111, bicarb 17, BUN 48, creatinine 2.2, glucose 95. BNP is elevated at 977. IMPRESSION AND PLAN 1. Acute kidney injury on probable chronic kidney disease, stage 4. Acute kidney injury is likely secondary to acute decompensation, which could be secondary to aspiration pneumonitis versus congestive heart failure exacerbation. I would favor more of IV diuresis over placing the patient on bicarbonate drip, which may overload the patient. The patient's bicarb is low, and he has primary metabolic acidosis. However, will change the fluids to D5 half NS with 75 mEq of sodium bicarbonate and run it at 50 mL per hour. I would favor diuresing the patient more and will place him on Lasix 40 mg IV q.8 h. and re-evaluate him. Will monitor strict I's and O's and daily weights. Will make further recommendations as more data becomes available. Recheck labs in the morning including basic metabolic panel, mag, phos, CBC, urine electrolytes. Will also get a renal ultrasound as a baseline. Will made further recommendations. Recommend to check a UA with culture if one has not already been done. 2. Hypertension. Blood pressure is uncontrolled. Recommend IV medications to manage the blood pressure since the patient is going to be n.p.o. and is not able to swallow by mouth. 3. Metabolic acidosis. Will change the fluids to D5 half-normal saline plus 75 mEq of sodium bicarbonate at 50 mL per hour. Will make further recommendations. Suspect that a component of metabolic acidosis is secondary to fluid overload. Thank you, once again, for the consultation. We will follow the patient closely with you and make further recommendations. Job#: [id number] cc:ANNA LIM MD
[2018-03-09] MEDS: FUROSEMIDE INJ 10 MG/ML 4 ML VIAL IV SCH ×2 (15:50→23:15)
[2018-03-09 16:13] LABS: CREATININE,URINE RANDOM 122.85 mg/dL (63-166)
[2018-03-09 17:27] LABS: ANION GAP 16.4 mmol/L (8-16); CALCIUM 8.2 mg/dL (8.4-10.2); CREATININE, SERUM 2.35 mg/dL (0.72-1.25); MAGNESIUM 1.9 MG/DL (1.3-2.1); PHOSPHORUS 4.7 MG/DL (2.3-4.7); POTASSIUM 4.4 mmol/L (3.5-5.1)
[2018-03-09] MEDS ORDERED: MIDAZOLAM HCL 2 MG/2 ML VIAL ONE (17:56)
[2018-03-09] MEDS ORDERED: ETOMIDATE 2 MG/ML 10 ML INJ IV ONE (17:56)
--- NOTE | 2018-03-09 20:12 | Diagnostic Imaging Report ---
A single frontal view of the chest. HISTORY: Tachypnea, shortness of breath COMPARISON: Chest radiograph March 09, 2018 at 0804 DISCUSSION: Portable technique, limits sensitivity of the exam. Soft tissue attenuation partially limits sensitivity of the exam. Multiple overlying monitoring leads. Right anterior oblique rotation. Tubes/Lines: None Lungs and pleura: Slightly improved bibasilar aeration of the lungs with residual atelectasis. Diffusely prominent interstitial markings. No definite pleural effusion or pneumothorax is identified. Heart and mediastinum: The cardiac silhouette appears enlarged. Bones: No acute osseous lesion is identified, given this limited exam. IMPRESSION: 1. Slightly decreased bibasilar atelectasis. 2. Findings which may reflect volume overload and interstitial edema. Signed by: Dr. Sha Xiao D.O., M.M.M. on 03/09/2018 8:09 PM
--- NOTE | 2018-03-09 20:22 | Diagnostic Imaging Report ---
A single frontal view of the chest. HISTORY: Status post intubation COMPARISON: Chest radiograph March 09, 2018 at 1923 DISCUSSION: Portable technique, limits sensitivity of the exam. Soft tissue attenuation partially limits sensitivity of the exam. Right anterior oblique rotation. Multiple overlying monitoring leads. Tubes/Lines: Status post intubation, the tip of the anterior tracheal tube projects 6.1 cm above the level of the edin. Lungs and pleura: Slightly improved aeration of the lungs. Diffusely prominent ulnar interstitial markings with slightly more confluent patchy bibasilar opacities. No definite pleural effusion or pneumothorax is identified. Heart and mediastinum: The cardiomediastinal silhouette appears unchanged. Bones: No acute osseous lesion is identified, given this limited exam. IMPRESSION: 1. Status post post intubation, consider advancement of the endotracheal tube (currently the tip projects 6.1 cm above the level of the edin). 2. Slightly improved aeration of the lungs. Signed by: Dr. Sha Xiao D.O., M.M.M. on 03/09/2018 8:19 PM
[2018-03-09] MEDS ORDERED: VANCOMYCIN 1GM/NS 250 ML 250 ML IV ONE (21:45)
[2018-03-09] MEDS: PROPOFOL IV EMULSION 10MG/ML 100 ML IV SCH (23:04)
[2018-03-09] MEDS: CEFEPIME HCL 1 GM VIAL IV SCH (23:05)
[2018-03-09 23:09] LABS: ABG PCO2 40 mmHg (41-51); ABG PH 7.35 (7.31-7.41); ABG PO2 118 mmHg (80-105)
[2018-03-09 23:10] LABS: ABG HCO3 22 mmol/L (23-28)
[2018-03-09 23:14] LABS: ABG HCO3 23 mmol/L (23-28); ABG PCO2 43 mmHg (41-51); ABG PH 7.34 (7.31-7.41); ABG PO2 97 mmHg (80-105)
[2018-03-10] VITALS (98 sets, daily range): BP systolic 126–182; BP diastolic 61–81
[2018-03-10] MEDS: PROPOFOL IV EMULSION 10MG/ML 100 ML IV SCH ×4 (02:03→20:38)
[2018-03-10 04:36] LABS: BASOPHILS % 0.4 % (0.0-1.0); EOSINOPHILS % 0.2 % (0.0-6.0); HEMATOCRIT 34.9 % (38.2-49.6); HEMOGLOBIN 11.2 g/dL (14.0-18.0); LYMPHOCYTES # (AUTO) 1.1 (1.0-3.2); LYMPHOCYTES % 10.1 % (18.0-39.1); MEAN CORPUSCULAR HEMOGLOBIN 30.5 pg (28-32); MEAN CORPUSCULAR HGB CONC 32.1 g/dL (31-35); MEAN CORPUSCULAR VOLUME 95.1 fL (81-99); MONOCYTES # (AUTO) 1.3 (0.2-0.8); MONOCYTES % 12.5 % (4.4-11.3); NEUTROPHILS # (AUTO) 8.1 (2.1-6.9); NEUTROPHILS % 76.3 % (38.7-80.0); PLATELET COUNT 185 x10e3/uL (140-360); RED BLOOD COUNT 3.67 x10e6/uL (4.3-5.7); RED CELL DISTRIBUTION WIDTH 13.9 % (11.7-14.4)
[2018-03-10 05:03] LABS: ALBUMIN 2.8 g/dL (3.5-5.0); BILIRUBIN,DIRECT 0.5 mg/dL (0.0-0.5); CALCIUM 8.7 mg/dL (8.4-10.2); CREATININE, SERUM 2.39 mg/dL (0.72-1.25); MAGNESIUM 1.9 MG/DL (1.3-2.1); PHOSPHORUS 3.4 MG/DL (2.3-4.7)
[2018-03-10 05:52] LABS: ABG PCO2 42 mmHg (41-51); ABG PH 7.41 (7.31-7.41)
[2018-03-10 05:56] LABS: ABG PO2 178 mmHg (80-105)
[2018-03-10 05:57] LABS: ABG HCO3 27 mmol/L (23-28)
--- NOTE | 2018-03-10 06:09 | Diagnostic Imaging Report ---
EXAMINATION: CHEST SINGLE (PORTABLE) INDICATION: Patient ventilated. COMPARISON: 03/09/2018 FINDINGS: TUBES and LINES: Endotracheal tube and NG tube are stable LUNGS: Lungs are not well inflated. There are bibasilar atelectasis. Confluent right lung base airspace opacity is stable PLEURA: Small left pleural effusion. HEART AND MEDIASTINUM: Cardiac size is moderately enlarged. There are atherosclerotic calcifications within the aorta. BONES AND SOFT TISSUES: No acute osseous lesion. Soft tissues are unremarkable. UPPER ABDOMEN: No free air under the diaphragm. IMPRESSION: 1. Findings are suspicious for multifocal infection. 2. Cardiomegaly and a small left pleural effusion. Signed by: Dr. Wilson Scott M.D. on 03/10/2018 6:05 AM
[2018-03-10] MEDS: LACTULOSE SYRUP 20 GM/30 ML UDC PO SCH ×3 (06:27→21:46)
[2018-03-10] MEDS: FUROSEMIDE INJ 10 MG/ML 4 ML VIAL IV SCH ×3 (06:27→21:46)
[2018-03-10] MEDS: LEVOTHYROXINE SODIUM 100 MCG/VIAL IV SCH (06:27)
[2018-03-10] MEDS: FAMOTIDINE 20 MG TAB PO SCH (07:30)
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
--- NOTE | 2018-03-10 08:37 | Progress Note ---
DATE: March 10, 2018 CRITICAL CARE PROGRESS NOTE Today, the patient is sedated with a Diprivan drip. He seems to be comfortable. PHYSICAL EXAMINATION VITALS: Pulse 62, respiratory rate 16, oxygen saturation 100%, blood pressure 172/68. He is on an assist control of 16, tidal volume 500, FIO2 50, PEEP of 5. HEENT: There is oral intubation and oral G-tube. NECK: No tenderness. LUNGS: There is some crackles and rhonchi. HEART: No murmurs. ABDOMEN: Irregular and extensive surgical scarring. EXTREMITIES: There is some pedal edema. LABS: WBC 10.61. The rest of the CBC unremarkable. Chemistry: BUN 58, creatinine 2.39, sugar 126, albumin 2.8. Rest of the chemistry unremarkable. Chest x-ray disclosed a slight improvement with less density of the consolidation that were present yesterday. IMPRESSION 1. Acute respiratory failure. 2. Bilateral pneumonia. 3. Hypertension. 4. Hypothyroidism. RECOMMENDATIONS: Continue with the current ventilatory settings. Will need to have ABGs. In terms of the other medications, he is on Protonix 40 mg q.12 h. IV, levothyroxine 100 mcg daily IV, cefepime 1 g q.12 h. IV, vancomycin 1 g q.12 h. IV, and will check the trough after the 3rd dose. He is getting also labetalol. We are planning to give him 20 mg q.12 h. IV. He is on propofol drip to keep him sedated. Job#: [id number] SHOSHANA PRECIADO
[2018-03-10] MEDS: PANTOPRAZOLE 40 MG 10ML VIAL IV SCH ×2 (09:00→18:40)
[2018-03-10] MEDS: NIFEDIPINE CR 30 MG TAB PO SCH (09:00)
[2018-03-10] MEDS: SODIUM BICARBONATE 650 MG TAB PO SCH ×3 (09:00→21:11)
[2018-03-10] MEDS: ASPIRIN 81 MG ENTERIC COATED PO SCH (09:00)
[2018-03-10] MEDS: THIAMINE HCL 100 MG TAB PO SCH (09:00)
[2018-03-10] MEDS: LABETALOL HCL 5 MG/ML 20ML VIAL IV SCH ×2 (09:20→21:11)
[2018-03-10] MEDS: CEFEPIME HCL 1 GM VIAL IV SCH ×2 (09:45→21:11)
[2018-03-10] MEDS ORDERED: VANCOMYCIN 1GM/NS 250 ML 250 ML IV SCH (09:45)
[2018-03-10] MEDS ORDERED: SODIUM CHLORIDE 0.9% 250ML 250 ML ONE ×2 (12:07→13:14)
[2018-03-10] MEDS: AMLODIPINE BESYLATE 10 MG TAB PO SCH (12:30)
[2018-03-10] MEDS ORDERED: AZITHROMYCIN 500MG/NS 250 ML 250 ML IV SCH (13:15)
--- NOTE | 2018-03-10 16:17 | Progress Note ---
DATE: March 10, 2018 RENAL PROGRESS NOTE SUBJECTIVE: Followed for acute kidney injury on chronic kidney disease, stage 3 to stage 4. The patient was transferred to the ICU, intubated secondary to persistent shortness of breath. The patient has diuresed quite well with Lasix 40 mg q.8 h. The patient has a right lower lobe infiltrate which could be consistent with aspiration pneumonitis. Has been transferred to the ICU, diuresing quite well with Lasix 40 mg IV q.8 h. Nonoliguric. Creatinine has risen a little bit, but it is expected to rise. Has been placed on vancomycin 1 gram q.12 h., which may be too high a dose for the patient's GFR. OBJECTIVE VITAL SIGNS: Noted. Blood pressure is 170s/76, and afebrile. LUNGS: Rales at the bases bilaterally. CARDIOVASCULAR: S1 and S2, no rubs. ABDOMEN: Soft and nontender. EXTREMITIES: 1+ edema. LABORATORY DATA: Sodium 144, potassium 4, chloride 108, bicarb 22, BUN 58, creatinine 2.39. Calcium 8.7. Phosphorous 3.4. Magnesium 1.9. IMPRESSION AND PLAN: 1. Acute kidney injury on chronic kidney disease stage 4. The patient's kidney function is slightly worse today. However, it is more or less at its baseline. When he came in creatinine was around 2.6 and it is around 2.4 today. The patient is nonoliguric. Would continue with diuresis. I agree to stop IV fluids. However, if the patient is going to remain n.p.o. may require maintenance IV fluids. At that point, would recommend D5 1/2 normal saline at 40-50 mL per hour. Will repeat labs again in the morning and make further recommendations. 2. Hypertension. Recommend to cover with empiric IV p.r.n. medication and once NG tube is placed, resume oral medications as well. 3. Metabolic acidosis has resolved now. Discontinue bicarb drip as it has already been done. 4. Fluid overload. Continue Lasix 40 mg IV q.8 h. for now. 5. Would recommend to really watch the vancomycin level very closely. With the current GFR, the patient has vancomycin dose too high. Will change it to 1 gram q. daily and monitor vancomycin levels closely. Thank you once again. Job#: [id number] GH
[2018-03-10] MEDS: DEXTROSE 5%/0.45% SOD CHL 1,000 ML IV SCH (18:40)
--- NOTE | 2018-03-10 22:42 | Progress Note ---
DATE: March 10, 2018 TIME: 5:50 a.m. OVERNIGHT: Patient was intubated overnight. REVIEW OF SYSTEMS: Unobtainable. PHYSICAL EXAM VITAL SIGNS: Reviewed. GENERAL: A tired-appearing man resting in bed. HEENT: ET tube in place. CARDIOVASCULAR: Normal S1, S2. LUNGS: Moderate breath sounds. ABDOMEN: Soft, nontender, nondistended. EXTREMITIES: No edema. SKIN: Dry. PSYCHIATRIC: Unable to assess. NEUROLOGIC: Sedated. LABS: Reviewed. MEDICATIONS: Reviewed. ASSESSMENT: This is a 77-year-old man. 1. Acute respiratory failure. 2. Acute metabolic encephalopathy. 3. Sundowning. 4. Hypertensive emergency. 5. Transient ischemic attack. 6. Overweight state. 7. Right lung pneumonia. 8. Ambulatory dysfunction. 9. Acute kidney injury in the setting of chronic kidney disease, stage unknown. 10. Hyperammonemia. PLAN 1. Fluids per nephrology 2. Continue vent support. Vent per pulmonary. 3. Check 2-D echocardiogram. 4. Continue care in the ICU. 5. Monitor closely. CRITICAL CARE TIME: More than 35 minutes. Job#: [id number] CQ
[2018-03-11] VITALS (79 sets, daily range): BP systolic 119–158; BP diastolic 49–91
[2018-03-11] MEDS: PROPOFOL IV EMULSION 10MG/ML 100 ML IV SCH ×4 (02:03→20:30)
[2018-03-11 04:39] LABS: BASOPHILS % 0.1 % (0.0-1.0); EOSINOPHILS % 0.4 % (0.0-6.0); HEMATOCRIT 35.2 % (38.2-49.6); HEMOGLOBIN 11.7 g/dL (14.0-18.0); LYMPHOCYTES % 9.7 % (18.0-39.1); MEAN CORPUSCULAR HEMOGLOBIN 31.2 pg (28-32); MEAN CORPUSCULAR HGB CONC 33.2 g/dL (31-35); MEAN CORPUSCULAR VOLUME 93.9 fL (81-99); MONOCYTES # (AUTO) 1.1 (0.2-0.8); MONOCYTES % 10.9 % (4.4-11.3); NEUTROPHILS # (AUTO) 8.2 (2.1-6.9); NEUTROPHILS % 78.3 % (38.7-80.0); PLATELET COUNT 186 x10e3/uL (140-360); RED BLOOD COUNT 3.75 x10e6/uL (4.3-5.7); RED CELL DISTRIBUTION WIDTH 13.7 % (11.7-14.4)
[2018-03-11 05:08] LABS: ANION GAP 18.5 mmol/L (8-16); CALCIUM 8.8 mg/dL (8.4-10.2); CREATININE, SERUM 2.58 mg/dL (0.72-1.25); MAGNESIUM 1.8 MG/DL (1.3-2.1); POTASSIUM 3.5 mmol/L (3.5-5.1)
[2018-03-11] MEDS: FUROSEMIDE INJ 10 MG/ML 4 ML VIAL IV SCH ×2 (05:51→15:18)
[2018-03-11] MEDS: LACTULOSE SYRUP 20 GM/30 ML UDC PO SCH ×2 (05:51→14:40)
[2018-03-11] MEDS: LEVOTHYROXINE SODIUM 100 MCG/VIAL IV SCH (05:51)
--- NOTE | 2018-03-11 07:35 | Diagnostic Imaging Report ---
EXAMINATION: CHEST SINGLE (PORTABLE) INDICATION: Pneumonia COMPARISON: Chest radiograph 03/10/2018. FINDINGS: TUBES and LINES: ET tube terminates in the mid trachea. Enteric tube courses into the stomach, the tip is not seen. LUNGS: Low lung volumes. There are patchy bibasilar opacities. Increasing confluent left retrocardiac opacity. PLEURA: Small left pleural effusion. No evidence of pneumothorax. HEART AND MEDIASTINUM: The cardiomediastinal silhouette is unchanged. Atherosclerotic aortic calcifications. BONES AND SOFT TISSUES: No acute osseous lesion. Soft tissues are unremarkable. UPPER ABDOMEN: No free air under the diaphragm. IMPRESSION: Lower lung zone predominant opacities, more confluent at the left lung base compared to prior radiograph, likely reflecting pneumonia. Persistent small left pleural effusion. Signed by: Dr. Bob Foster MD on 03/11/2018 7:32 AM
[2018-03-11] MEDS ORDERED: FUROSEMIDE INJ 10 MG/ML 4 ML VIAL IV PRN (09:00)
[2018-03-11] MEDS: ASPIRIN 81 MG ENTERIC COATED PO SCH (09:00)
[2018-03-11] MEDS ORDERED: FUROSEMIDE INJ 10 MG/ML 2 ML VIAL IV PRN (09:30)
--- NOTE | 2018-03-11 09:42 | Progress Note ---
DATE: March 11, 2018 PULMONARY PROGRESS NOTE Patient is a 77-year-old who has been ventilated in the last days. He seems to improve. PHYSICAL EXAMINATION VITALS: Temperature 100.2, pulse 72, oxygen saturation 99%, respiratory rate 22, blood pressure 152/63. The patient is on assist control of 16, tidal volume 500, FiO2 50, PEEP of 5. GENERAL: He is sedated on Diprivan drip. HEENT: Oral intubation. Oral G-tube. NECK: No tenderness. LUNGS: Some crackles in the bases. HEART: No murmurs. ABDOMEN: Soft. EXTREMITIES: No pedal edema. LABS: WBC 10.47. Rest of the CBC was unremarkable. Chemistry: Potassium 3.5, BUN 57, creatinine 2.58, sugar 140. The rest of the chemistry was unremarkable. Chest x-ray disclosed still bibasilar infiltration, but there is significant improvement in comparison with the previous x-ray done yesterday. ABGs from yesterday disclosed pH 7.41, pCO2 42, pO2 178. IMPRESSION 1. Acute respiratory failure. 2. Bilateral pneumonia. 3. Acute kidney injury on chronic kidney disease. 4. There are levels of sugar compatible with diabetes. 5. Hypothyroidism. Overall, the patient is better. In terms of recommendations, continue with the current ventilatory settings. Vancomycin he is getting 1 gram q.12 IV but we have the trough result still pending and cefepime 1 gram q.12. Besides that, he is on Lasix 40 mg q.8. Due to the worsening renal failure, we will place the Lasix p.r.n. In addition, he is getting thyroxine 100 mcg daily. We are planning for tomorrow ABGs, chemistry, CBC, chest x-ray. If the patient seems to be better, we will give him a trial of possible weaning and extubation. Job#: [id number]
[2018-03-11] MEDS: THIAMINE HCL 100 MG TAB PO SCH (09:47)
[2018-03-11] MEDS: ASPIRIN 81 MG CHEW TAB PEG SCH (09:47)
[2018-03-11] MEDS: PANTOPRAZOLE 40 MG 10ML VIAL IV SCH ×2 (09:47→16:50)
[2018-03-11] MEDS: CEFEPIME HCL 1 GM VIAL IV SCH (09:47)
[2018-03-11] MEDS: SODIUM BICARBONATE 650 MG TAB PO SCH ×2 (09:47→14:40)
[2018-03-11] MEDS: AMLODIPINE BESYLATE 10 MG TAB PO SCH (09:47)
[2018-03-11] MEDS: LABETALOL HCL 5 MG/ML 20ML VIAL IV SCH ×2 (09:48→21:02)
[2018-03-11] MEDS: VANCOMYCIN 1GM/NS 250 ML 250 ML IV SCH (10:06)
[2018-03-11] MEDS ORDERED: QUETIAPINE FUMARATE 25 MG TAB PO PRN (10:15)
[2018-03-11] MEDS ORDERED: ZIPRASIDONE 20 MG VIAL IM PRN (10:15)
--- NOTE | 2018-03-11 11:13 | Consultation ---
DATE OF CONSULTATION: March 11, 2018 PSYCHIATRIC INITIAL CONSULTATION REASON FOR CONSULTATION: For treatment and evaluation of the patient's confusion and agitation. HISTORY OF PRESENT ILLNESS: The patient is a 77-year-old male who was admitted to [facility] due to multiple medical problems including respiratory failure. Psychiatric consult is called to evaluate the patient's confusion and agitation during his inpatient stay. Upon evaluation today, the patient was found to be in the ICU. He is currently intubated due to his respiratory problems. He is not able to provide any meaningful information at this time because of the fact that he is intubated. As per the nursing staff, the patient was confused and agitated during his inpatient stay. He was intubated yesterday because of his respiratory problems. PAST PSYCHIATRIC HISTORY: None reported. FAMILY HISTORY: Unknown. CURRENT LABS: WBC 10.47, hemoglobin 11.7, hematocrit 35.2, platelets 186. Sodium 144, potassium 3.5, chloride 104, carbon dioxide 25, BUN 57, creatinine 2.5. AST 24, ALT 12, alkaline phosphatase 52. CURRENT MEDICATIONS 1. Azithromycin. 2. Vancomycin. 3. Amlodipine. 4. Aspirin. 5. Cefepime. 6. Lasix. 7. Levothyroxine. 8. Ativan 1 mg IV q.6 h. p.r.n. for agitation. MENTAL STATUS EXAMINATION: The patient is an elderly, male who is currently lying on his bed. He is intubated at this time and is unable to participate for a complete mental status examination. He is not agitated at this time. DIAGNOSES/AXIS I: 1. Unspecified psychosis/delirium. 2. Rule out dementia. PLAN OF CARE 1. Continue Ativan 1 mg IV q.6 h. p.r.n. for agitation. 2. Add Geodon 10 mg IM q.6 p.r.n. for agitation. 3. Add Seroquel 35 mg p.o. q.6 h. p.r.n. for agitation. 4. We will continue to follow this patient during his inpatient stay for the management of his psychiatric symptoms. Thank you very much for this consult. Job#: [id number]
[2018-03-11] MEDS ORDERED: POTASSIUM CHLORIDE 20MEQ/100ML 200 ML IV ONE (15:15)
[2018-03-11] MEDS: DEXTROSE 5%/0.45% SOD CHL 1,000 ML IV SCH (15:45)
--- NOTE | 2018-03-11 22:21 | Progress Note ---
DATE: March 11, 2018 TIME: 6 a.m. OVERNIGHT: The patient remains intubated. He had EKG changes and rapid heart rate. REVIEW OF SYSTEMS: Unobtainable. PHYSICAL EXAMINATION VITAL SIGNS: Reviewed. GENERAL: A tired-appearing man resting in bed. HEENT: ET tube in place. CARDIOVASCULAR: Normal S1 and S2. LUNGS: Reduced breath sounds throughout. ABDOMEN: Soft, nontender and nondistended. EXTREMITIES: No edema. SKIN: Dry. PSYCHIATRIC: Unable to assess. NEUROLOGIC: Sedated. LABS: Reviewed. MEDICATIONS: Reviewed. ASSESSMENT: A 77-year-old man with: 1. Acute respiratory failure. 2. Acute metabolic encephalopathy. 3. Hypertensive emergency. 4. Transient ischemic attack. 5. Abnormal electrocardiogram. 6. Overweight state. 7. Right lung aspiration pneumonia. 8. Ambulatory dysfunction. 9. Acute kidney injury in the setting of chronic kidney disease, stage unknown. 10. Hyperammonemia. 11. Urinary tract infection. 12. Staphylococcus aureus pneumonia: Sensitivity pending. PLAN 1. Continue vent support. 2. Antibiotics for urinary tract infection. 3. Likely aspiration pneumonia episodes. 4. Continue IV vancomycin. 5. Continue IV Lasix. 6. Follow up vancomycin trough. 7. Continue care in the ICU. 8. Discussed the case with the patient's at the bedside. 9. Cardiology has been consulted. Job#: [id number] SHOSHANA
[2018-03-12] VITALS (77 sets, daily range): BP systolic 111–156; BP diastolic 46–105
[2018-03-12] MEDS: LACTULOSE SYRUP 20 GM/30 ML UDC PO SCH ×3 (02:56→21:15)
[2018-03-12] MEDS: PROPOFOL IV EMULSION 10MG/ML 100 ML IV SCH (02:57)
[2018-03-12 04:41] LABS: BASOPHILS % 0.3 % (0.0-1.0); EOSINOPHILS # (AUTO) 0.1 (0.0-0.4); EOSINOPHILS % 0.6 % (0.0-6.0); HEMATOCRIT 34.9 % (38.2-49.6); HEMOGLOBIN 11.4 g/dL (14.0-18.0); LYMPHOCYTES # (AUTO) 0.8 (1.0-3.2); LYMPHOCYTES % 6.6 % (18.0-39.1); MEAN CORPUSCULAR HEMOGLOBIN 31.1 pg (28-32); MEAN CORPUSCULAR HGB CONC 32.7 g/dL (31-35); MEAN CORPUSCULAR VOLUME 95.1 fL (81-99); MONOCYTES # (AUTO) 0.7 (0.2-0.8); MONOCYTES % 6.4 % (4.4-11.3); NEUTROPHILS # (AUTO) 9.9 (2.1-6.9); PLATELET COUNT 175 x10e3/uL (140-360); RED BLOOD COUNT 3.67 x10e6/uL (4.3-5.7); RED CELL DISTRIBUTION WIDTH 13.8 % (11.7-14.4)
[2018-03-12 05:00] LABS: ANION GAP 16.7 mmol/L (8-16); CALCIUM 8.6 mg/dL (8.4-10.2); CREATININE, SERUM 3.27 mg/dL (0.72-1.25); MAGNESIUM 1.8 MG/DL (1.3-2.1); PHOSPHORUS 3.1 MG/DL (2.3-4.7); POTASSIUM 3.7 mmol/L (3.5-5.1)
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
[2018-03-12] MEDS: LEVOTHYROXINE SODIUM 100 MCG/VIAL IV SCH (05:57)
[2018-03-12 06:11] LABS: ABG PCO2 41 mmHg (41-51); ABG PH 7.46 (7.31-7.41); ABG PO2 85 mmHg (80-105)
[2018-03-12 06:12] LABS: ABG HCO3 29 mmol/L (23-28)
--- NOTE | 2018-03-12 06:37 | Diagnostic Imaging Report ---
EXAMINATION: CHEST SINGLE (PORTABLE) INDICATION: Intubated COMPARISON: 03/11/2018 FINDINGS: TUBES and LINES: Endotracheal tube and NG tube are stable LUNGS: Lungs are not well inflated. There are bibasilar atelectasis. There is perihilar interstitial opacities, consistent with interstitial edema. PLEURA: Small left pleural effusion. HEART AND MEDIASTINUM: Cardiac size is moderately enlarged. There are atherosclerotic calcifications within the aorta. BONES AND SOFT TISSUES: No acute osseous lesion. Soft tissues are unremarkable. UPPER ABDOMEN: No free air under the diaphragm. IMPRESSION: 1. Findings are suspicious for multifocal infection versus fluid overload. 2. Cardiomegaly and a small left pleural effusion. Signed by: Dr. Wilson Scott M.D. on 03/12/2018 6:33 AM
--- NOTE | 2018-03-12 07:36 | Progress Note ---
DATE: March 11, 2018 RENAL PROGRESS NOTE SUBJECTIVE: Mr. Gomez is being followed for chronic kidney disease, stage 4. His creatinine is more or less at his baseline. His baseline is around 2.5 mg/dL. His creatinine today is 2.58. It was 2.4 mg/dL yesterday. The patient has diuresed quite well with IV Lasix 40 mg q.8 h. I am decreasing the Lasix dose to 40 mg IV daily. The patient remains on the vent. The patient has pneumonia. He is on cefepime and vancomycin. Doses have been dosed appropriately. Vancomycin trough level today was 17. Vancomycin dose is being given 1 gram daily. I have ordered another level. We will hold the dose if the level is greater than 20. The patient remains intubated. However, the patient is responsive. Also, the patient is nonoliguric. OBJECTIVE VITAL SIGNS: Noted. Blood pressure is 129/79, 60 pulse, 20 respirations. The patient is on the vent. LUNGS: No rales at the bases bilaterally. CARDIOVASCULAR: S1 and S2, no rubs. ABDOMEN: Soft and nontender. EXTREMITIES: There is 1+ edema. LABORATORY WORKUP: Sodium 144, potassium 3.5, chloride 104, bicarb 25, BUN 57, creatinine 2.58, calcium 8.8, phosphorus 3, magnesium 1.8. IMPRESSION AND PLAN 1. Chronic kidney disease, stage 4. More or less stable kidney function. Creatinine did rise a little bit from yesterday. I will decrease his Lasix to 40 mg IV daily and monitor kidney function as well as will need to monitor his vancomycin level very closely. Will order another vancomycin trough level tomorrow and hold the dose if the trough is greater than 20. Continue maintenance IV fluids for now at very low dose at 40 mL per hour. Would not give IV fluids at a fast rate since the patient will get fluid overloaded again. 2. Hypertension. The blood pressure is stable and controlled. 3. Metabolic acidosis, resolved with the diuresis. Will also discontinue his bicarbonate tablets that he was taking orally. 4. Pneumonia. Plan would be per pulmonary and critical care. The patient is on IV cefepime 1 gram q.12 and will decrease it to 1 gram daily. The patient's vancomycin dose has already been decreased to 1 gram daily from q.12 h. Vancomycin level was checked today, and it was 17. Will recheck another vancomycin level tomorrow. If the level is greater than 20, would hold the dose tomorrow. Thank you once again. Job#: [id number]
[2018-03-12] MEDS: VANCOMYCIN 1GM/NS 250 ML 250 ML IV SCH (09:00)
--- NOTE | 2018-03-12 09:19 | Progress Note ---
DATE: March 12, 2018 The patient is a 77 year old. Has been intubated and sedated for the last day secondary to respiratory failure due to bilateral pneumonia and probably some fluid accumulation. Today, he looks stable. He is on Diprivan drip for sedation. PHYSICAL EXAMINATION VITALS: Pulse 62, oxygen saturation 98%, afebrile. He is on assist control of 16, FIO2 50, tidal volume 500, PEEP of 5. HEENT: Oral intubation. Oral G-tube. He is starting to get GI feeding. NECK: No tenderness. LUNGS: Some crackles in the bases. HEART: No murmurs. ABDOMEN: Surgical scarring. EXTREMITIES: No pedal edema. LABS: The BUN is 64, creatinine 3.27, sugar 175. The rest of the chemistry unremarkable. The ABG with pH of 7.46, pCO2 41, pO2 85. The CBC with WBC 11.6, hemoglobin and platelets within normal limits. The chest x-ray still disclosing bibasilar opacities, slightly more than yesterday. IMPRESSION 1. Acute respiratory failure. 2. Bibasilar pneumonia. 3. Hypertension. 4. Hypothyroidism. The patient is getting medications. Is getting cefepime 1 g q.24 h. Vancomycin 1 g daily IV. Lasix 40 mg daily IV. He is on levothyroxine 100 mcg daily. What we are recommending is to stop the sedation and try to see if the patient can be weaned, and subsequently extubated. Job#: [id number] SHOSHANA
[2018-03-12] MEDS: FUROSEMIDE INJ 10 MG/ML 4 ML VIAL IV SCH (09:39)
[2018-03-12] MEDS: LABETALOL HCL 5 MG/ML 20ML VIAL IV SCH ×2 (09:39→21:15)
[2018-03-12] MEDS: PANTOPRAZOLE 40 MG 10ML VIAL IV SCH ×2 (09:39→17:26)
[2018-03-12] MEDS: CEFEPIME HCL 1 GM VIAL IV SCH (09:40)
[2018-03-12] MEDS: AMLODIPINE BESYLATE 10 MG TAB PO SCH (09:40)
[2018-03-12] MEDS: ASPIRIN 81 MG CHEW TAB PEG SCH (09:40)
[2018-03-12] MEDS: THIAMINE HCL 100 MG TAB PO SCH (09:40)
--- NOTE | 2018-03-12 10:41 | Progress Note ---
DATE: March 12, 2018 PSYCHIATRIC PROGRESS NOTE Patient evaluated and events noted. INTERVAL HISTORY: Patient is still in ICU and is currently intubated. He is not agitated and currently in restrain. He is getting his medications without any apparent side effects. As per the nursing staff, patient is still intubated and there is a plan to extubate him hopefully later today. DIAGNOSES/AXIS I: 1. Unspecified psychosis/delirium. 2. Rule out dementia. PLAN OF CARE: 1. Continue IV p.r.n. Ativan. 2. Continue Geodon 10 mg IM q.6. p.r.n. 3. Continue Seroquel 25 mg p.o. q.6. p.r.n. 4. Monitor for agitation. Job#: [id number]
[2018-03-12] MEDS: BUMETANIDE 1 MG TAB PO SCH ×2 (14:16→21:20)
[2018-03-12] MEDS ORDERED: WATER STERILE 10 ML VIAL INJ PRN (14:30)
[2018-03-12] MEDS: LEVOFLOXACIN 250MG/D5W 50ML 50 ML IV SCH (16:06)
[2018-03-13] VITALS (67 sets, daily range): BP systolic 132–177; BP diastolic 57–120
[2018-03-13 04:40] LABS: BASOPHILS # (AUTO) 0.1 (0.0-0.1); BASOPHILS % 0.5 % (0.0-1.0); EOSINOPHILS # (AUTO) 0.1 (0.0-0.4); EOSINOPHILS % 1.1 % (0.0-6.0); HEMATOCRIT 34.4 % (38.2-49.6); LYMPHOCYTES % 9.8 % (18.0-39.1); MEAN CORPUSCULAR HEMOGLOBIN 30.1 pg (28-32); MEAN CORPUSCULAR VOLUME 94.2 fL (81-99); MONOCYTES # (AUTO) 0.9 (0.2-0.8); MONOCYTES % 8.3 % (4.4-11.3); NEUTROPHILS # (AUTO) 7.9 (2.1-6.9); NEUTROPHILS % 76.6 % (38.7-80.0); PLATELET COUNT 189 x10e3/uL (140-360); RED BLOOD COUNT 3.65 x10e6/uL (4.3-5.7); RED CELL DISTRIBUTION WIDTH 13.8 % (11.7-14.4)
[2018-03-13 05:13] LABS: ALBUMIN 1.9 g/dL (3.5-5.0); ANION GAP 17.6 mmol/L (8-16); BILIRUBIN,DIRECT 0.7 mg/dL (0.0-0.5); CALCIUM 8.9 mg/dL (8.4-10.2); CREATININE, SERUM 3.55 mg/dL (0.72-1.25); POTASSIUM 3.6 mmol/L (3.5-5.1)
[2018-03-13] MEDS: BUMETANIDE 1 MG TAB PO SCH ×3 (06:15→21:23)
[2018-03-13] MEDS: LACTULOSE SYRUP 20 GM/30 ML UDC PO SCH ×3 (06:15→21:23)
[2018-03-13] MEDS: LEVOTHYROXINE SODIUM 100 MCG/VIAL IV SCH (06:15)
--- NOTE | 2018-03-13 07:04 | Diagnostic Imaging Report ---
EXAMINATION: CHEST SINGLE (PORTABLE) INDICATION: Ventilated patient COMPARISON: 03/12/2018 FINDINGS: TUBES and LINES: Endotracheal tube and NG tube are stable LUNGS: Lungs are not well inflated. There are bibasilar atelectasis. There is perihilar interstitial opacities, consistent with interstitial edema. PLEURA: Small left pleural effusion. HEART AND MEDIASTINUM: Cardiac size is moderately enlarged. There are atherosclerotic calcifications within the aorta. BONES AND SOFT TISSUES: No acute osseous lesion. Soft tissues are unremarkable. UPPER ABDOMEN: No free air under the diaphragm. IMPRESSION: 1. Findings are suspicious for multifocal infection versus fluid overload. 2. Cardiomegaly and a small left pleural effusion. Signed by: Dr. Wilson Scott M.D. on 03/13/2018 7:01 AM
[2018-03-13 08:02] LABS: ABG HCO3 29 mmol/L (23-28); ABG PCO2 41 mmHg (41-51); ABG PH 7.46 (7.31-7.41); ABG PO2 85 mmHg (80-105)
--- NOTE | 2018-03-13 08:13 | Progress Note ---
DATE: March 13, 2018 Patient has been off sedation since yesterday. He does not show any particular responsiveness. EXAM VITALS: In terms of the vitals, pulse 74, respiratory rate 19, blood pressure 148/82. He is on assist control of 16, tidal volume 500, FIO2 50, PEEP of 5. HEENT: Oral intubation. Oral G-tube. NECK: Atraumatic. No tenderness. LUNGS: Crackles in the bases. HEART: No murmurs. ABDOMEN: Soft. EXTREMITIES: No pedal edema. LABS: WBC 10.3. The rest of the CBC unremarkable. Chemistry: BUN 71, creatinine 3.55, sugar 164, total bilirubin 1, albumin 1.9. The rest of the chemistry unremarkable. Chest x-ray disclosed more fluid in the lungs and left pleural effusion. ABG disclosed pH of 7.46, pCO2 41, pO2 85. IMPRESSION 1. Acute respiratory failure. 2. Pneumonia. 3. Hypothyroidism. 4. Chronic kidney disease. 5. Hypertension. 6. Gout. RECOMMENDATIONS: He has persistent unresponsiveness, which can be compatible with a new stroke. He needs to be seen and evaluated by our neurologist. Besides that, he is getting currently cefepime 1 g q.24 h. IV, vancomycin 1 g daily IV, Bumex 1 mg q.8 h., and Levaquin 250 mg q.24 h. I would like for him to continue with the same ventilatory settings, and to perform ABGs and chest x-ray some time tomorrow. DICTATED BY EL OCONNOR MD Job#: [id number] [place]
[2018-03-13 08:22] LABS: BAND NEUTROPHILS % (MANUAL) 4 %; LYMPHOCYTES % (MANUAL) 9 % (19-48); METAMYELOCYTES % (MANUAL) 1 % (0-0); MONOCYTES % (MANUAL) 4 % (3.4-9.0); MYELOCYTES % (MANUAL) 2 % (0-0); NEUTROPHILS % (MANUAL) 79 % (40-74)
[2018-03-13 08:23] LABS: HYPOCHROMASIA SLIGHT; PLATELET ESTIMATE ADEQUATE; PLATELET MORPHOLOGY COMMENT NORMAL; RBC MORPHOLOGY COMMENT NORMAL
[2018-03-13 08:24] LABS: ANISOCYTOSIS SLIGHT
[2018-03-13] MEDS: PANTOPRAZOLE 40 MG 10ML VIAL IV SCH ×2 (09:11→17:46)
[2018-03-13] MEDS: VANCOMYCIN 1GM/NS 250 ML 250 ML IV SCH (09:17)
[2018-03-13] MEDS: LABETALOL HCL 5 MG/ML 20ML VIAL IV SCH ×2 (09:17→21:23)
[2018-03-13] MEDS: THIAMINE HCL 100 MG TAB PO SCH (09:18)
[2018-03-13] MEDS: ASPIRIN 81 MG CHEW TAB PEG SCH (09:18)
[2018-03-13] MEDS: AMLODIPINE BESYLATE 10 MG TAB PO SCH (09:18)
[2018-03-13] MEDS: CEFEPIME HCL 1 GM VIAL IV SCH (09:58)
--- NOTE | 2018-03-13 12:27 | Progress Note ---
DATE: March 13, 2018 PSYCHIATRIC PROGRESS NOTE Patient evaluated and events noted. INTERVAL HISTORY: Patient is currently lying on his bed in ICU. He continues to be intubated but is off sedation. He is somewhat restless and in restraints. He is not agitated. As per the nursing staff, patient is not on any sedation, but he is not responding very well, so they have continued to intubate him for now. Neurology is already on the case. No major agitation noted by the staff. DIAGNOSES 1. Unspecified psychosis/delirium. 2. Rule out dementia. PLAN OF CARE 1. Continue IV p.r.n. Ativan. 2. Continue Geodon 10 mg IM p.r.n. 3. Continue p.r.n. Seroquel. 4. Monitor for agitation. Job#: [id number]
[2018-03-13] MEDS: LEVOFLOXACIN 250MG/D5W 50ML 50 ML IV SCH (15:15)
[2018-03-13] MEDS ORDERED: SODIUM CHLORIDE 0.9% 250ML 250 ML ONE (18:10)
[2018-03-13] MEDS: PROPOFOL IV EMULSION 10MG/ML 100 ML IV SCH (20:00)
[2018-03-13] MEDS: ACETAMINOPHEN 325 MG TAB PO PRN (21:27)
[2018-03-14] VITALS (40 sets, daily range): BP systolic 140–178; BP diastolic 59–79
[2018-03-14 04:48] LABS: BASOPHILS % 0.3 % (0.0-1.0); EOSINOPHILS # (AUTO) 0.2 (0.0-0.4); EOSINOPHILS % 1.8 % (0.0-6.0); HEMATOCRIT 33.8 % (38.2-49.6); HEMOGLOBIN 10.9 g/dL (14.0-18.0); LYMPHOCYTES % 9.9 % (18.0-39.1); MEAN CORPUSCULAR HEMOGLOBIN 30.5 pg (28-32); MEAN CORPUSCULAR HGB CONC 32.2 g/dL (31-35); MEAN CORPUSCULAR VOLUME 94.7 fL (81-99); MONOCYTES # (AUTO) 1.1 (0.2-0.8); MONOCYTES % 10.9 % (4.4-11.3); NEUTROPHILS # (AUTO) 6.9 (2.1-6.9); NEUTROPHILS % 70.3 % (38.7-80.0); PLATELET COUNT 225 x10e3/uL (140-360); RED BLOOD COUNT 3.57 x10e6/uL (4.3-5.7); RED CELL DISTRIBUTION WIDTH 13.9 % (11.7-14.4)
[2018-03-14 04:59] LABS: INR 1.1; PROTHROMBIN TIME 15.2 seconds (11.9-14.5)
[2018-03-14 05:16] LABS: ALBUMIN 1.9 g/dL (3.5-5.0); ALBUMIN/GLOBULIN RATIO 0.4 (0.8-2.0); ANION GAP 16.5 mmol/L (8-16); CALCIUM 9.5 mg/dL (8.4-10.2); CREATININE, SERUM 3.84 mg/dL (0.72-1.25); POTASSIUM 3.5 mmol/L (3.5-5.1)
--- NOTE | 2018-03-14 05:17 | Consultation ---
DATE OF CONSULTATION: NEUROLOGY CONSULT NOTE HISTORY OF PRESENT ILLNESS: Mr. Gomez is a 77-year-old, yiyev-dqij-qgrgczaa man with past medical history significant for hypertension, diabetes mellitus type 2, thyroid disease, chronic kidney disease stage 3/4 and possible dementia, admitted to [facility] on March 07, 2018 with multiple symptoms. At present, the patient is intubated and poorly responsive. History is obtained from his daughter who is at the bedside. On March 05, 2018, the patient was found by police to be wandering in a [employer] parking lot in the [place], [place]. The patient's daughter was notified, presented to the parking lot where her father was, and had him follow her home in his car. Afterwards, Mr. Brady was brought to the emergency center at [facility] for further evaluation of confusion. While in the emergency center, the patient was found to have pneumonia. He was admitted to [facility] so he could receive intravenous antibiotics as a treatment for his pneumonia. Over the next 3 to 4 days, the patient became increasingly confused and agitated. According to his daughter, on Thursday, March 08, 2018, the patient developed rapid and shallow respirations. Throughout that day, he gradually became more ?obtunded?. On the evening of Friday, March 09, 2018, a rapid response was called on the patient for respiratory distress. He was transferred to the IMCU where he was placed on BiPAP. Subsequently, he was transferred to the ICU where he was intubated. Mr. Gomez remained intubated and sedated for a few days. Sedation with propofol was discontinued at 07: 45 on March 12, 2018. Mr. Gomez has lorazepam listed as one of his hospital medications. He last received this medicine on March 09, 2018. Mr. Gomez had Geodon and Seroquel listed as hospital medication as well, but has not received a dose of either of these medications. Despite discontinuing sedation approximately 32 hours prior to this evaluation, the patient remains poorly responsive. He will not open his eyes, would not follow commands, and does not make any purposeful movements. A neurology consultation is requested for further evaluation of the patient's poor level of responsiveness. REVIEW OF SYSTEMS: Unable to obtain as the patient is intubated and poorly responsive. PAST MEDICAL HISTORY: Hypertension, diabetes mellitus type 2, thyroid disease, chronic kidney disease stage 3/4, possible dementia, a prior history of orthostasis, polio in childhood. 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 PAST HOSPITALIZATIONS: Surgeries/procedures as listed. FAMILY MEDICAL HISTORY: The patient's paternal and maternal grandparents are . Their medical histories are unknown. The patient's father is . He had hypertension and diabetes mellitus. The patient's mother is . She had hypertension and diabetes mellitus as well. The patient's daughter reports Mr. Gomez's mother was born with 1 kidney. Mr. Gomez had 4 siblings, 1 brother and 3 sisters. One sister is alive. She has hypertension and diabetes mellitus. One sister is . The only medical history known for this sister is that she had a pancreatic mass, but Mr. Gomez's daughter believes the mass was benign. The 3rd sister is . She had Trisomy 21. The patient's brother is . He had coronary artery disease, cardiac failure, and renal failure. Mr. Gomez has 1 child, a daughter, who is alive. She has hypertension and neurofibromatosis, type unknown. SOCIAL HISTORY: Mr. Gomez is . He lives with his daughter. The patient is retired. There is a remote history of tobacco use, but the patient quit smoking cigarettes approximately 30 years ago. The patient's daughter endorses occasional alcohol use. There is no known current or prior recreational drug use. HOME MEDICATIONS: Please see list of home medications available in the electronic medical record. ALLERGIES: CODEINE. NO KNOWN FOOD ALLERGIES. NO KNOWN ALLERGIES TO LATEX. NO KNOWN ALLERGIES TO IODINE OR OTHER CONTRAST MATERIALS. PHYSICAL EXAMINATION VITAL SIGNS: Height 74 inches, weight 207.31 pounds, BMI 26.6 kg per meter squared, blood pressure 156/64 mmHg, pulse 75 beats per minute, respiratory rate 20 breaths per minute, oxygen saturation 97% with ventilator settings as follows: Oxygen concentration 50%, peak 5 cm water, respiratory rate 16 breaths per minute, tidal volume 500 mL. GENERAL: The patient is intubated and poorly responsive. HEENT: Normocephalic, atraumatic. Pupils are surgical. Moist mucous membranes. NECK: Supple. No appreciable thyromegaly. No appreciable carotid bruits. CARDIOVASCULAR: S1, S2, regular rate and rhythm. No murmurs, rubs, or gallops. RESPIRATORY: There is decreased air movement anteriorly. No wheezes, rhonchi, or rales. EXTREMITIES: Skin is warm and dry. No clubbing, cyanosis, or edema. The posterior tibial and dorsalis pedis pulses are 1+ and symmetric. SKIN: No rashes or lesions. NEUROLOGIC: Memory/Attention: The patient is intubated and poorly responsive. He does not respond to verbal stimuli. He does grimace to central noxious stimulation. CRANIAL NERVES: The patient resists having his eyes opened. Pupils are surgical. Corneal, oculocephalic, and gag reflexes are intact. The face appears symmetric. STRENGTH: The patient moves all extremities spontaneously, right arm and leg greater than the left arm and leg. There is more tone in the right arm and leg as compared to the left arm and leg. There is withdrawal of all 4 extremities to peripheral noxious stimulation. DTRs: Deep tendon reflexes are 2+ at the right triceps, biceps, brachioradialis, and patella. Deep tendon reflexes are trace to 1+ at the left triceps, biceps, brachioradialis, and patella. Deep tendon reflexes are absent and symmetric at the bilateral Achilles. Plantar responses are flexor bilaterally. SENSATION: As per motor exam. CEREBELLAR: Unable to assess secondary to the patient being intubated and poorly responsive. GAIT: Unable to assess secondary to the patient being intubated and poorly responsive. SPEECH: Unable to assess secondary to patient being intubated and poorly responsive. INVOLUNTARY MOVEMENTS: None. PRONATOR DRIFT: As per motor exam. LABORATORY DATA: The patient's most recent comprehensive metabolic panel is significant for an anion gap was 17.6, BUN of 71, creatinine of 3.55, estimated GFR of 17, glucose of 164, and mildly elevated AST of 65. Ammonia is 62. The CBC with differential on platelets reveals a white blood cell count of 10.30 with 76.6% neutrophils, 9.8% lymphocytes, 8.3% monocytes, 1.1% eosinophils, and 0.5% basophils. The hemoglobin and hematocrit are 11.0 and 34.4, respectively. The platelet count is 189,000. An arterial blood gas drawn this morning revealed a pH of 7.46, pCO2 of 41, pO2 of 85, bicarbonate of 29, O2 saturation of 97.0, base excess of 6.0, and FIO2 of 50. DIAGNOSTIC STUDIES: Chest x-ray on March 05, 2018: Ill-defined patchy opacity in the right lower lung, which may represent pneumonia, in the appropriate clinical setting. Atelectasis and scarring are secondary considerations. CT of the brain without contrast on March 05, 2018: On my review, there is no evidence of recent large territorial ischemia, hemorrhage, mass, or mass effect. There is diffuse cerebral atrophy, more than expected for the patient's age. There are findings compatible with mboq-hn-pwiznstb chronic small vessel ischemic disease. MRI of the brain without contrast on March 06, 2018: On my review, there is no evidence of recent large territorial ischemia, hemorrhage, mass, or mass effect. Chronic lacunar infarcts are seen in the left striatal capsular region as well as the right mid cerebellum. There is diffuse cerebral atrophy, more than expected for age. There are scattered nonspecific T2/flair hyperintense foci of the supratentorial deep white matter compatible with moderate chronic small vessel ischemic disease. MRA of the brain and neck on March 06, 2018: Evaluation of this study is limited by motion artifact. However, there do not appear to be any hemodynamically significant atherosclerosis of either the intracranial or extracranial blood vessels. Bilateral carotid artery ultrasound with Doppler on March 06, 2018: Atherosclerosis without hemodynamically significant stenosis at the bilateral common carotid arteries, bulbs, and bifurcations as well as the right internal carotid artery and right external carotid artery. Flow is antegrade in the bilateral vertebral arteries. Renal ultrasound on March 09, 2018: Increased renal cortical echogenicity compatible with medical renal disease. Echocardiogram on March 10, 2018: Ejection fraction 55%. Trace pericardial effusion. Trace tricuspid regurgitation. Mild pulmonic insufficiency. Chest x-ray on March 13, 2018: Findings are suspicious for multifocal infection versus fluid overload. Cardiomegaly and small left pleural effusion. ASSESSMENT AND PLAN: Mr. 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 Mr. Gomez is noted to have more spontaneous movements, better tone, and relatively normal deep tendon reflexes over the right arm and leg when compared to the left arm and leg. The patient's laboratory data and other diagnostic studies have been reviewed and are documented above. The findings on the patient's neurological examination raised suspicion for pathology in the central nervous system, specifically the brain. It is possible, due to the decline in function of both his kidneys and liver, the patient requires a longer period of time to recover from prolonged sedation. In addition, the patient's various current medical problems as detailed above would cause a metabolic encephalopathy and could account for the patient's poor responsiveness. RECOMMENDATIONS FOLLOWS: 1. Vitamin B12 level and RPR will be ordered to complete an evaluation for encephalopathy. 2. An MRI of the brain without contrast will be ordered to evaluate for recent pathology in the brain. Specifically, there is concern for a stroke given the findings of the patient's neurological examination. 3. A routine EEG will be ordered to evaluate for seizure activity as well as to assess the degree of encephalopathy. 4. Defer treatment of the remaining medical comorbidities to the primary and other services following the patient. Thank you for this consultation. I will continue to follow the patient while he remains in the hospital. Time Spent: 70 minutes Job#: [id number] SHAHEEN PRECIADO
[2018-03-14] MEDS: LACTULOSE SYRUP 20 GM/30 ML UDC PO SCH (06:00)
[2018-03-14] MEDS: LEVOTHYROXINE SODIUM 100 MCG/VIAL IV SCH (06:00)
[2018-03-14] MEDS: BUMETANIDE 1 MG TAB PO SCH ×3 (06:00→21:46)
[2018-03-14 07:04] LABS: BAND NEUTROPHILS % (MANUAL) 1 %; EOSINOPHILS % (MANUAL) 1 % (0-7); LYMPHOCYTES % (MANUAL) 13 % (19-48); MONOCYTES % (MANUAL) 8 % (3.4-9.0); NEUTROPHILS % (MANUAL) 77 % (40-74); PLATELET ESTIMATE ADEQUATE; PLATELET MORPHOLOGY COMMENT NORMAL; RBC MORPHOLOGY COMMENT NORMAL
--- NOTE | 2018-03-14 07:29 | Diagnostic Imaging Report ---
EXAMINATION: CHEST SINGLE (PORTABLE) INDICATION: \S\F/U Pneumonia \[id number] \S\0520 COMPARISON: Chest radiograph 03/13/2018 FINDINGS: AP view TUBES and LINES: ET tube tip projects 3.1 cm above the edin. NG/OG tube tip extends through the GE junction out of the field of view. LUNGS: Lungs are well inflated. Perihilar interstitial opacities and right basilar opacity are unchanged. PLEURA: Small left pleural effusion. Right pleural effusion. HEART AND MEDIASTINUM: Stable mild cardiomegaly. BONES AND SOFT TISSUES: No acute osseous lesion. Soft tissues are unremarkable. UPPER ABDOMEN: No free air under the diaphragm. IMPRESSION: Stable perihilar interstitial opacities and right basilar opacity may represent edema or multifocal infection. Small left pleural effusion. Signed by: DR. Jairo Blood MD on 03/14/2018 7:26 AM
[2018-03-14 08:43] LABS: ABG HCO3 32 mmol/L (23-28); ABG PCO2 42 mmHg (41-51); ABG PH 7.49 (7.31-7.41); ABG PO2 110 mmHg (80-105)
[2018-03-14] MEDS: PANTOPRAZOLE 40 MG 10ML VIAL IV SCH ×2 (09:02→17:00)
[2018-03-14] MEDS: THIAMINE HCL 100 MG TAB PO SCH (09:04)
[2018-03-14] MEDS: BALSAM PERU/CASTOR OIL 60 GM OINT...G. TP SCH ×2 (09:04→21:44)
[2018-03-14] MEDS: AMLODIPINE BESYLATE 10 MG TAB PO SCH (09:04)
[2018-03-14] MEDS: ASPIRIN 81 MG CHEW TAB PEG SCH (09:04)
[2018-03-14] MEDS: LABETALOL HCL 5 MG/ML 20ML VIAL IV SCH ×2 (09:05→21:10)
[2018-03-14] MEDS: CEFEPIME HCL 1 GM VIAL IV SCH (09:45)
--- NOTE | 2018-03-14 11:16 | Diagnostic Imaging Report ---
History: Confusion and right-sided headache Comparison studies: MRI brain 03/06/2018 CT head 03/05/2018 Technique: Sagittal T2; axial DWI, FLAIR, MPGR, T1, Coronal FLAIR. Intravenous contrast: None Findings: Scalp: Normal in signal . No masses . Bone marrow: Normal in signal intensity. Extra-axial: No masses, no fluid collections. Brain sulci: Mildly prominent. Ventricles: Moderately prominent . No hydrocephalus . Parenchyma: Few FLAIR small hyperintensities of the periventricular and deep white matter.. Cortical-based hyperintensity with volume loss at the right mid cerebellum. Chronic left striatocapsular lacunar infarct. Subependymal confluent flair hyperintensity of the bifrontal left more than right white matter. No masses, hemorrhage or acute vascular insults. Suprasellar region: No abnormalities. Craniocervical junction: No abnormalities. Patent foramen magnum. No Chiari one malformation. Vessels: Normal flow-voids in the arteries and sinuses. Bilateral cataract surgery changes. Fluid intensity signal at the bilateral right more than left mastoid air cells. Mucosal thickening at the bilateral sphenoid sinuses IMPRESSION: 1. No acute abnormalities. Stable compared to the previous examination 2. Mild chronic microvascular ischemic changes of the white matter. Chronic left striatocapsular lacunar referred. Chronic right cerebellar lacunar infarct. 3. Moderate ventricular prominence out of proportion for the subarachnoid widening, this could be related to central volume loss or normal pressure hydrocephalus, recommend clinical correlation. 4. Nonspecific mild inflammatory changes of the bilateral mastoid air cells and sphenoid sinuses. Signed by: DR Enmanuel Hoyos M.D. on 03/14/2018 11:13 AM
[2018-03-14] MEDS: VANCOMYCIN 1GM/NS 250 ML 250 ML IV SCH (14:06)
[2018-03-14] MEDS: CYANOCOBALAMIN INJ 1,000 MCG/ML VIAL IM SCH (14:13)
[2018-03-14] MEDS: LEVOFLOXACIN 250MG/D5W 50ML 50 ML IV SCH (15:15)
[2018-03-14] MEDS: PROPOFOL IV EMULSION 10MG/ML 100 ML IV SCH (20:00)
--- NOTE | 2018-03-14 23:32 | Progress Note ---
DATE: March 12, 2018 TIME: 7:30 a.m. OVERNIGHT: No events. REVIEW OF SYSTEMS: Unobtainable. PHYSICAL EXAMINATION VITAL SIGNS: Reviewed. GENERAL APPEARANCE: Tired-appearing man resting in bed. HEENT: Anicteric. He has ET tube in place. CARDIOVASCULAR: Normal S1 and S2. LUNGS: Moderate breath sounds. ABDOMEN: Soft and nontender. EXTREMITIES: No edema. SKIN: Dry. PSYCHIATRIC: Unable to assess. LABS: Reviewed. MEDICATIONS: Reviewed. ASSESSMENT: A 77-year-old man with; 1. Acute respiratory failure. 2. Acute metabolic encephalopathy. 3. Hypertensive emergency . 4. Transient ischemic attack. 5. Abnormal EKG. 6. Overweight state. 7. Right lung aspiration pneumonia with methicillin-sensitive Staph aureus. 8. Ambulatory dysfunction. 9. Acute kidney injury in the setting of chronic kidney disease, stage unknown. 10. Hyperammonemia. 11. Urinary tract infection. PLAN 1. Continue vent support. 2. Continue antibiotics. 3. GFR . 4. Nephrology consultation. 5. Monitor closely in the ICU. Job#: [id number] SHAHEEN
[2018-03-15] VITALS (42 sets, daily range): BP systolic 108–174; BP diastolic 53–98
--- NOTE | 2018-03-15 01:28 | Progress Note ---
DATE: March 13, 2018 TIME: 7:30 a.m. OVERNIGHT: No events. REVIEW OF SYSTEMS: Unobtainable. PHYSICAL EXAMINATION VITAL SIGNS: Reviewed. GENERAL APPEARANCE: Tired-appearing man resting in bed. HEENT: Anicteric. ET tube in place. CARDIOVASCULAR: Normal S1 and S2. LUNGS: Moderate breath sounds. ABDOMEN: Soft and nontender. EXTREMITIES: No edema. SKIN: Dry. PSYCHIATRIC: Unable to assess. NEUROLOGICAL: Sedation has been discontinued. LABS: Reviewed. MEDICATIONS: Reviewed. ASSESSMENT: A 77-year-old man with: 1. Acute respiratory failure. 2. Acute metabolic encephalopathy. 3. Hypertensive emergency. 4. Abnormal EKG. 5. Overweight state. 6. Right lung aspiration pneumonia with methicillin-sensitive Staphylococcus aureus. 7. Ambulatory dysfunction. 8. Acute kidney injury in the setting of chronic kidney disease, stage unknown. 9. Hyperammonemia. 10. Urinary tract infection. PLAN 1. Check ammonia level. 2. Continue vent support. 3. Continue antibiotics. 4. Followup further cultures. 5. No sedation. 6. Monitor for improvement in mental status. Job#: [id number] RTY
--- NOTE | 2018-03-15 03:13 | Diagnostic Imaging Report ---
EXAM: ABDOMEN-1VIEW (KUB) DATE: 03/15/2018 12:00 AM Time stamp on exam: 1:39 AM INDICATION: Distention COMPARISON: None FINDINGS: LINES/TUBES: NG tube is visualized with tip overlying the antrum. BOWEL PATTERN: No evidence for obstruction. SOFT TISSUES: Calcific densities overlying the right upper quadrant compatible with cholelithiasis versus nephrolithiasis. The largest measuring 9 mm in diameter LUNG BASES: Not included BONES: Degenerative changes of the lower lumbar spine and bilateral SI joints. IMPRESSION: 1. NG tube in good position. 2. No evidence of obstructive bowel gas pattern. 3. Calcifications in the right upper quadrant may represent nephrolithiasis or cholelithiasis. Signed by: Dr. Wilson Scott M.D. on 03/15/2018 3:09 AM
--- NOTE | 2018-03-15 03:14 | Diagnostic Imaging Report ---
EXAMINATION: CHEST SINGLE (PORTABLE) INDICATION: CHF COMPARISON: 03/14/2018 FINDINGS: TUBES and LINES: Endotracheal and NG tube are visualized, stable. LUNGS: Lungs are not well inflated. There are bibasilar atelectasis. Confluent airspace opacity in the right lung base is stable There is perihilar interstitial opacities, consistent with interstitial edema. PLEURA: Small left pleural effusion is stable. HEART AND MEDIASTINUM: Cardiac size is moderately enlarged. There are atherosclerotic calcifications within the aorta. BONES AND SOFT TISSUES: No acute osseous lesion. Soft tissues are unremarkable. UPPER ABDOMEN: No free air under the diaphragm. IMPRESSION: 1. Pulmonary edema is stable. 2. Confluent opacity in the right lung base may represent aspiration or pneumonia. 3. Small left pleural effusion. Signed by: Dr. Wilson Scott M.D. on 03/15/2018 3:11 AM
--- NOTE | 2018-03-15 03:27 | Progress Note ---
DATE: March 14, 2018 TIME: 7:30 a.m. OVERNIGHT: No events. REVIEW OF SYSTEMS: Unobtainable. PHYSICAL EXAMINATION VITAL SIGNS: Reviewed. GENERAL APPEARANCE: Tired-appearing man resting in bed. HEENT: Anicteric. ET tube in place. CARDIOVASCULAR: Normal S1 and S2. LUNGS: Moderate breath sounds. ABDOMEN: Soft, nontender. EXTREMITIES: No edema. SKIN: Dry. PSYCHIATRIC: Unable to assess. NEUROLOGICAL: Not sedated, but only opens his eyes intermittently, not following commands. LABS: Reviewed. MEDICATIONS: Reviewed. ASSESSMENT: A 77-year-old man with; 1. Acute respiratory failure. 2. Acute metabolic encephalopathy. 3. Hypertensive emergency. 4. Transient ischemic attack. 5. Abnormal EKG. 6. Overweight state. 7. Right lung aspiration pneumonia with methicillin-sensitive Staph aureus. 8. Ambulatory dysfunction. 9. Acute kidney injury in the setting of chronic kidney disease likely stage 4. 10. Hyperammonemia. 11. Urinary tract infection. PLAN 1. Hold lactulose. 2. Vent per pulmonary service. 3. Await medical improvement and waking of patient as the sedation has been stopped now for over a day. 4. Continue antibiotics. 5. Lasix. 6. Continue to monitor closely in the ICU. 7. Vancomycin trough was 16.9. I have discussed case with family member at bedside. Job#: [id number] SHAHEEN
--- NOTE | 2018-03-15 04:48 | Progress Note ---
DATE: March 14, 2018 PULMONARY MEDICINE PROGRESS NOTE SUBJECTIVE: Mr. Gomez was seen and examined at bedside. He continues to have intubated state, 16/500/50/5. Patient remains off propofol for 2 days. No Ativan for 5 days. He still will grimace and minimally move his upper extremities on sternal rub or noxious stimuli. Sputum is thick from endotracheal tube. Urine output is good. He is on Jevity 1.2 mL at 50 mL per hour and water 50 mL every 4 hours. REVIEW OF SYSTEMS: Cannot get as he is intubated. OBJECTIVE VITAL SIGNS: Afebrile. Vital signs noted per electronic record. GENERAL: No acute distress, in bed, on ventilator. HEENT: Normocephalic, atraumatic. NECK: Supple. Throat midline. LUNGS: Bilateral air entry, a few rhonchi. CARDIOVASCULAR: S1 and S2. No murmurs, rubs or gallops. ABDOMEN: Soft, nontender. EXTREMITIES: No clubbing, no cyanosis. There is 2+ edema. INTEGUMENT: No rash. No purpura. LABS: BUN 82, creatinine 3.8. Potassium 3.5. White count 10 and hematocrit 34. Staphylococcus aureus on sputum, moderate amount MSSA. Urine culture, no growth final. RADIOGRAPHY: MRI brain with mild chronic microvascular changes, chronic small infarcts reported. Some ventricular prominence out of proportion, further subarachnoid widening, and some sinus and mastoid air cell disease. IMPRESSION 1. Acute respiratory failure, intubated. 2. Staphylococcal pneumonia. 3. Hypothyroidism. 4. Gxalg-lu-netgdan kidney disease. 5. Gout. 6. Hypertension. 7. Metabolic toxic encephalopathy. 8. Urinary tract infection . 9. Possible dementia, underlying. PLAN: Continue intubated state, but we will down adjust the ventilator. Check KUB given abdominal distention. Check chest x-ray in the morning to reassess the pneumonia. Recheck morning labs. Patient will have attempts at extubation trials when he awakens, but it is notable that his Staphylococcal pneumonia appears quite severe. We will follow along closely. Avoid kidney toxicity noting the increasing creatinine. Job#: [id number] RTY
[2018-03-15] MEDS: LEVOTHYROXINE SODIUM 100 MCG/VIAL IV SCH (05:04)
[2018-03-15 05:42] LABS: ALBUMIN 1.8 g/dL (3.5-5.0); ALBUMIN/GLOBULIN RATIO 0.4 (0.8-2.0); ANION GAP 10.2 mmol/L (8-16); CALCIUM 9.8 mg/dL (8.4-10.2); CREATININE, SERUM 3.49 mg/dL (0.72-1.25); POTASSIUM 4.2 mmol/L (3.5-5.1); VANCOMYCIN,RANDOM 28.3 ug/mL
[2018-03-15] MEDS: BUMETANIDE 1 MG TAB PO SCH ×3 (08:22→20:48)
[2018-03-15] MEDS: CYANOCOBALAMIN INJ 1,000 MCG/ML VIAL IM SCH (08:22)
[2018-03-15] MEDS: PANTOPRAZOLE 40 MG 10ML VIAL IV SCH ×2 (08:22→17:00)
[2018-03-15] MEDS: LABETALOL HCL 5 MG/ML 20ML VIAL IV SCH ×2 (08:23→20:47)
[2018-03-15] MEDS: ASPIRIN 81 MG CHEW TAB PEG SCH (08:24)
[2018-03-15] MEDS: POTASSIUM CHLORIDE 20 MEQ TAB CR PO SCH (08:24)
[2018-03-15] MEDS: BALSAM PERU/CASTOR OIL 60 GM OINT...G. TP SCH ×2 (08:25→20:48)
[2018-03-15] MEDS: HEPARIN SOD (PORCINE) 5,000 UNIT/ML VIAL SC SCH ×2 (08:25→20:47)
[2018-03-15] MEDS: CEFEPIME HCL 1 GM VIAL IV SCH (08:25)
[2018-03-15] MEDS: AMLODIPINE BESYLATE 10 MG TAB PO SCH (08:25)
[2018-03-15] MEDS: THIAMINE HCL 100 MG TAB PO SCH (08:25)
[2018-03-15] MEDS: VANCOMYCIN 750MG/NS 150ML IVPB 150 ML IV SCH (09:00)
--- NOTE | 2018-03-15 12:30 | Electroencephalogram ---
DATE OF STUDY: March 14, 2018 REQUESTING PHYSICIAN: Dr. Carmen Carias. PATIENT HISTORY: This 77-year-old man with history of minimal responsiveness is having an EEG for evaluation of epileptiform activity. The patient is not taking any medications that might effect the EEG. TECHNIQUE: This is a routine, portable EEG, recorded digitally, using the International 10/20 Electrode Placement System, and done in the inpatient setting with the patient minimally responsive. The EEG is adequate for interpretation. DESCRIPTION: Poorly-organized, moderately well-sustained, 5-6 Hz activity is best seen symmetrically over the posterior head regions. No focal or epileptiform activity is recorded. Sleep is not recorded. Photic stimulation does not produce a driving response. Hyperventilation is not performed. INTERPRETATION: This EEG is abnormal with the patient minimally responsive due to diffuse slowing of background electrocortical activity, compatible with a diagnosis of moderate diffuse encephalopathy. No epileptiform discharges are seen. Clinical correlation is recommended. Job#: [id number] BENJAMIN PRECIADO
[2018-03-15] MEDS: LEVOFLOXACIN 250MG/D5W 50ML 50 ML IV SCH (14:19)
--- NOTE | 2018-03-15 14:24 | Progress Note ---
DATE: March 15, 2018 TIME: 7:30 a.m. OVERNIGHT: No change. REVIEW OF SYSTEMS: Unobtainable. PHYSICAL EXAMINATION VITAL SIGNS: Reviewed. GENERAL APPEARANCE: Tired-appearing man resting in bed. HEENT: Anicteric. He has ET tube in place. Eyes closed. CARDIOVASCULAR: Normal S1 and S2. LUNGS: Normal breath sounds. ABDOMEN: Soft and nontender. EXTREMITIES: No edema. SKIN: Dry. PSYCHIATRIC: Unable to assess. NEUROLOGICAL: Not sedated. Not interactive. He resists possibly open of his eyes. LABS: Reviewed. MEDICATIONS: Reviewed. ASSESSMENT: A 77-year-old man with; 1. Acute respiratory failure. 2. Acute metabolic encephalopathy. 3. Hypertensive emergency. 4. Transient ischemic attack. 5. Abnormal EKG. 6. Overweight state. 7. Right lung aspiration pneumonia with methicillin-sensitive Staphylococcus aureus. 8. Ambulatory dysfunction. 9. Acute kidney injury in the setting of chronic kidney disease, likely stage 4. 10. Hyperammonemia. 11. Urinary tract infection. 12. Low normal vitamin B12. PLAN 1. Continue vent support. 2. Await awaking of the patient. 3. Continue vancomycin. 4. Lactulose was stopped last night. His ammonia level today is slightly better than yesterday, which is 56. 5. Continue broad-spectrum antibiotics. 6. Renal function essentially unchanged. I's and O's are 1596/2100. Job#: [id number] ILAN
[2018-03-15] MEDS: ALBUTEROL/IPRATROPIUM 3 ML NEB NEB SCH (19:00)
[2018-03-15] MEDS ORDERED: ALBUTEROL/IPRATROPIUM 3 ML NEB NEB SCH (19:00)
[2018-03-15] MEDS: PROPOFOL IV EMULSION 10MG/ML 100 ML IV SCH (20:00)
[2018-03-16] VITALS (42 sets, daily range): BP systolic 121–177; BP diastolic 56–129
--- NOTE | 2018-03-16 04:46 | Progress Note ---
DATE: March 15, [address] Bingham. SUBJECTIVE: The patient is a 77-year-old who has been intubated over the last days due to acute respiratory failure, in which also pneumonia was present. He has a history of hypertension, hypothyroidism, chronic kidney diseases, gout, and hyperlipidemia. He has been a smoker for at least 25-30 years, quit 35 year ago. He has chronic kidney disease and was intubated due to acute respiratory failure. He has been off sedation for the last 3 days, still is remaining unresponsive. PHYSICAL EXAMINATION VITAL SIGNS: Pulse 65, oxygen saturation 100, and blood pressure 160/70. He is on FiO2 50 and PEEP of 5. HEENT: Atraumatic. NECK: There is mass tender present in the right neck. LUNGS: Decreased breath sounds in the bases and some rhonchi. HEART: No murmurs. ABDOMEN: Soft, but there is irregular surgical scarring. EXTREMITIES: No pedal edema. LABORATORY DATA: BUN 19, creatinine 3.49, sugar 139, and albumin 1.8. IMPRESSION 1. Acute respiratory failure. 2. Bilateral pneumonia. 3. Chronic kidney disease. 4. Hypothyroidism. 5. Hypertension. 6. Gout. 7. Unresponsiveness. 8. There is mass in the right neck. PLAN: Currently, the patient is on Levaquin 250 mg daily IV, cefepime 1 g q.24h. IV, and Protonix 40 mg b.i.d. The patient as reported has been unresponsive. It looks that the prognosis is very poor. We have been discussing the situation of the patient with his daughter continuously and for the time being we are continuing with active support and full care. Job#: [id number] SHAHEEN
[2018-03-16 04:59] LABS: BASOPHILS % 0.3 % (0.0-1.0); EOSINOPHILS # (AUTO) 0.2 (0.0-0.4); HEMATOCRIT 33.9 % (38.2-49.6); HEMOGLOBIN 10.6 g/dL (14.0-18.0); LYMPHOCYTES # (AUTO) 1.3 (1.0-3.2); LYMPHOCYTES % 12.3 % (18.0-39.1); MEAN CORPUSCULAR HEMOGLOBIN 30.2 pg (28-32); MEAN CORPUSCULAR HGB CONC 31.3 g/dL (31-35); MEAN CORPUSCULAR VOLUME 96.6 fL (81-99); MONOCYTES # (AUTO) 1.6 (0.2-0.8); NEUTROPHILS # (AUTO) 5.7 (2.1-6.9); NEUTROPHILS % 54.1 % (38.7-80.0); PLATELET COUNT 233 x10e3/uL (140-360); RED BLOOD COUNT 3.51 x10e6/uL (4.3-5.7); RED CELL DISTRIBUTION WIDTH 14.1 % (11.7-14.4)
[2018-03-16 05:32] LABS: ALBUMIN 1.7 g/dL (3.5-5.0); ALBUMIN/GLOBULIN RATIO 0.4 (0.8-2.0); ANION GAP 12.4 mmol/L (8-16); CALCIUM 9.2 mg/dL (8.4-10.2); CREATININE, SERUM 3.37 mg/dL (0.72-1.25); POTASSIUM 4.4 mmol/L (3.5-5.1)
[2018-03-16] MEDS: LEVOTHYROXINE SODIUM 100 MCG/VIAL IV SCH (06:00)
[2018-03-16 06:49] LABS: ABG HCO3 36 mmol/L (23-28); ABG PCO2 49 mmHg (41-51); ABG PH 7.48 (7.31-7.41); ABG PO2 122 mmHg (80-105)
[2018-03-16] MEDS: ALBUTEROL/IPRATROPIUM 3 ML NEB NEB SCH ×4 (07:00→20:00)
--- NOTE | 2018-03-16 07:09 | Diagnostic Imaging Report ---
PROCEDURE: CHEST SINGLE (PORTABLE) COMPARISON: 03/15/2018. INDICATIONS: INTUBATED FINDINGS: Endotracheal tube and enteric tube are unchanged in position. Overall stable appearance of the lungs with patchy confluent opacities in the lung bases, left greater than right. Associated small left pleural effusion is unchanged. Stable cardiomediastinal contour. No acute osseous abnormality. CONCLUSION: Stable position of support lines and tubes. Unchanged bibasilar airspace opacities, which may reflect atelectasis, aspiration, or pneumonia in the correct clinical setting. Pulmonary venous congestion is similar in degree to that noted 03/15/2018. Dictated by: Davy Escobedo M.D. on 03/16/2018 at 7:18 Electronically approved by: Davy Escobedo M.D. on 03/16/2018 at 7:18
[2018-03-16 08:16] LABS: ANISOCYTOSIS SLIGHT; BAND NEUTROPHILS % (MANUAL) 4 %; BLAST CELLS % MANUAL 1; EOSINOPHILS % (MANUAL) 1 % (0-7); HYPOCHROMASIA SLIGHT; LYMPHOCYTES % (MANUAL) 16 % (19-48); METAMYELOCYTES % (MANUAL) 1 % (0-0); MONOCYTES % (MANUAL) 11 % (3.4-9.0); MYELOCYTES % (MANUAL) 2 % (0-0); NEUTROPHILS % (MANUAL) 62 % (40-74); PLATELET ESTIMATE ADEQUATE; PLATELET MORPHOLOGY COMMENT NORMAL; RBC MORPHOLOGY COMMENT NORMAL
[2018-03-16] MEDS: CYANOCOBALAMIN INJ 1,000 MCG/ML VIAL IM SCH (08:20)
[2018-03-16] MEDS: PANTOPRAZOLE 40 MG 10ML VIAL IV SCH ×2 (08:20→19:27)
[2018-03-16] MEDS: ASPIRIN 81 MG CHEW TAB PEG SCH (08:20)
[2018-03-16] MEDS: LABETALOL HCL 5 MG/ML 20ML VIAL IV SCH ×2 (08:20→21:09)
[2018-03-16] MEDS: AMLODIPINE BESYLATE 10 MG TAB PO SCH (08:21)
[2018-03-16] MEDS: POTASSIUM CHLORIDE 20 MEQ TAB CR PO SCH (08:21)
[2018-03-16] MEDS: THIAMINE HCL 100 MG TAB PO SCH (08:21)
[2018-03-16] MEDS: HEPARIN SOD (PORCINE) 5,000 UNIT/ML VIAL SC SCH ×2 (08:22→21:10)
[2018-03-16] MEDS: BALSAM PERU/CASTOR OIL 60 GM OINT...G. TP SCH ×2 (08:22→21:11)
[2018-03-16] MEDS: VANCOMYCIN 750MG/NS 150ML IVPB 150 ML IV SCH (09:00)
[2018-03-16] MEDS: CEFEPIME HCL 1 GM VIAL IV SCH (09:45)
[2018-03-16] MEDS ORDERED: BUMETANIDE INJ 0.25MG/ML 4ML VIAL IV SCH (11:09)
--- NOTE | 2018-03-16 12:14 | Progress Note ---
DATE: March 16, 2018 PSYCHIATRIC PROGRESS NOTE Patient evaluated and events noted. INTERVAL HISTORY: Patient is an elderly male who is currently lying on his bed in ICU. He is still in restraints and intubated. He is being weaned off. He is restless but not agitated. He has p.r.n. medications for his agitation. He is not able to answer any questions at this time. DIAGNOSES 1. Unspecified psychosis/delirium. 2. Rule out dementia. PLAN OF CARE 1. Continue IV p.r.n. Ativan. 2. Continue IM p.r.n. Geodon. 3. Continue p.r.n. Seroquel. 4. Monitor for agitation. Job#: [id number]
[2018-03-16] MEDS ORDERED: BUMETANIDE INJ 0.25MG/ML 4ML VIAL IV ONE (14:00)
[2018-03-16] MEDS: BUMETANIDE INJ 0.25MG/ML 4ML VIAL IV SCH ×2 (14:20→22:45)
--- NOTE | 2018-03-16 15:39 | Progress Note ---
DATE: March 16, 2018 PULMONARY PROGRESS NOTE SUBJECTIVE: Patient is still unresponsive. OBJECTIVE VITAL SIGNS: Blood pressure 159/63, oxygen saturation 100, pulse 69. He is on assist control of 14, tidal volume 450, FIO2 50, PEEP of 5. HEENT: Oral intubation, oral G tube. NECK: No tenderness. LUNGS: Some crackles. HEART: No murmurs. ABDOMEN: Soft. EXTREMITIES: Minimal edema. WBC 10.59, hemoglobin 10.6, rest of the CBC unremarkable. The chemistry: BUN 100, creatinine 3.37, sugar 171, albumin 1.7. The ABGs: pH 748, pCO2 49, pO2 122. IMPRESSION: Acute respiratory failure. Patient had pneumonia. Besides that, he has renal failure, probably acute kidney injury on chronic kidney disease, diabetes. He is unresponsive. He has actually bilateral pneumonia, hypothyroidism, hyperlipidemia. RECOMMENDATION: To continue with vancomycin although the trough is 18 today; so, very elevated. To continue with the same ventilatory settings. He has SCDs in both lower extremities, and he is on Protonix 40 q.12 IV. Other medications I will recommend to continue without significant changes. EL OCONNOR MD Job#: [id number] EV
[2018-03-16] MEDS: LEVOFLOXACIN 250MG/D5W 50ML 50 ML IV SCH (15:51)
[2018-03-16 18:52] LABS: CALCIUM 10.9 mg/dL (8.4-10.2); CREATININE, SERUM 3.24 mg/dL (0.72-1.25); POTASSIUM 4.8 mmol/L (3.5-5.1)
[2018-03-16 19:38] LABS: ANION GAP 18.8 mmol/L (8-16)
[2018-03-16] MEDS: PROPOFOL IV EMULSION 10MG/ML 100 ML IV SCH (20:00)
[2018-03-17] VITALS (67 sets, daily range): BP systolic 72–174; BP diastolic 44–123
[2018-03-17] MEDS: ALBUTEROL/IPRATROPIUM 3 ML NEB NEB SCH ×4 (00:30→19:15)
[2018-03-17] MEDS: LEVOTHYROXINE SODIUM 100 MCG/VIAL IV SCH (06:26)
[2018-03-17 07:16] LABS: CREATININE, SERUM 3.25 mg/dL (0.72-1.25); MAGNESIUM 1.9 MG/DL (1.3-2.1); PHOSPHORUS 4.4 MG/DL (2.3-4.7); POTASSIUM 4.7 mmol/L (3.5-5.1)
--- NOTE | 2018-03-17 07:38 | Diagnostic Imaging Report ---
EXAMINATION: CHEST SINGLE (PORTABLE) INDICATION: Tube placement. COMPARISON: Chest radiograph 03/15/2018 FINDINGS: TUBES and LINES: Endotracheal tube terminates 4 cm above the edin. Enteric tube courses into the stomach, the tip is not in the field of view. LUNGS: Lungs are not well inflated. Unchanged left retrocardiac and right lung base opacities. There is perihilar interstitial opacities, consistent with interstitial edema. PLEURA: Small left pleural effusion is stable. HEART AND MEDIASTINUM: Cardiac size is moderately enlarged. There are atherosclerotic calcifications within the aorta. BONES AND SOFT TISSUES: No acute osseous lesion. Soft tissues are unremarkable. UPPER ABDOMEN: No free air under the diaphragm. IMPRESSION: Lines and tubes as above. Similar appearance of pulmonary interstitial edema and small left pleural effusion. Lower lung zone opacities which may represent aspiration or pneumonia. Signed by: Dr. Bob Foster MD on 03/17/2018 7:35 AM
[2018-03-17] MEDS: BUMETANIDE INJ 0.25MG/ML 4ML VIAL IV SCH (08:09)
[2018-03-17 08:17] LABS: ANION GAP 27.7 mmol/L (8-16)
[2018-03-17] MEDS: LABETALOL HCL 5 MG/ML 20ML VIAL IV SCH ×2 (09:00→20:31)
[2018-03-17] MEDS: HEPARIN SOD (PORCINE) 5,000 UNIT/ML VIAL SC SCH ×2 (09:00→20:37)
[2018-03-17] MEDS: ASPIRIN 81 MG CHEW TAB PEG SCH (09:28)
[2018-03-17] MEDS: CYANOCOBALAMIN INJ 1,000 MCG/ML VIAL IM SCH (09:28)
[2018-03-17] MEDS: THIAMINE HCL 100 MG TAB PO SCH (09:28)
[2018-03-17] MEDS: AMLODIPINE BESYLATE 10 MG TAB PO SCH (09:28)
[2018-03-17] MEDS: PANTOPRAZOLE 40 MG 10ML VIAL IV SCH ×2 (09:28→17:05)
[2018-03-17] MEDS: VANCOMYCIN 750MG/NS 150ML IVPB 150 ML IV SCH (09:28)
[2018-03-17] MEDS: MUPIROCIN 2% OINT 22 GM TUBE TOP SCH (09:30)
[2018-03-17] MEDS: BALSAM PERU/CASTOR OIL 60 GM OINT...G. TP SCH ×2 (09:30→20:37)
[2018-03-17] MEDS: CEFEPIME HCL 1 GM VIAL IV SCH (09:30)
[2018-03-17] MEDS: LEVOFLOXACIN 250MG/D5W 50ML 50 ML IV SCH (14:48)
[2018-03-17] MEDS ORDERED: SODIUM CHLORIDE 0.9% 1000ML 2,000 ML IV PRN (15:00)
[2018-03-17] MEDS ORDERED: SODIUM CHLORIDE 0.9% 250ML 500 ML IV PRN (15:00)
[2018-03-17] MEDS ORDERED: ALBUMIN 25% 12.5GM 0.25 GM/ML BTL IV PRN (15:00)
[2018-03-17] MEDS ORDERED: MANNITOL 25% 12.5GM/50 ML VIAL IV PRN (15:00)
--- NOTE | 2018-03-17 15:48 | Progress Note ---
DATE: March 17, 2018 PULMONARY/CRITICAL CARE PROGRESS NOTE SUBJECTIVE: The patient remains on assist control mode of ventilation. Radiology is currently placing a dialysis catheter. He did not tolerate his spontaneous breathing trial yesterday and became tachypneic. He continues on antibiotics for pneumonia. He is currently on a Diprivan drip. OBJECTIVE VITAL SIGNS: The blood pressure is 173/67, and the heart rate is 66. He is on an assist control with pressure regulation. HEENT: Examination shows no facial swelling or erythema. There is an oral endotracheal tube in place. CARDIAC: Exam reveals a regular rate and rhythm with a normal S1 and S2. LUNGS: Auscultation reveals rhonchorous breath sounds bilaterally. There is no wheezing. ABDOMEN: Soft and nontender. There is no rebound or guarding. NEUROLOGICAL: The patient is still somnolent even when the Diprivan is stopped. IMPRESSION 1. Acute respiratory failure. 2. Staphylococcus aureus pneumonia with septic shock. 3. Jygmv-zt-xgrhhth renal failure. 4. Metabolic encephalopathy. 5. Hypertension. PLAN 1. Nephrology is planning for dialysis. 2. Repeat the spontaneous breathing trial after additional fluid is removed. 3. Continue current antibiotics. 4. Repeat ABG. 5. Repeat chest x-ray in a.m. 6. Hold sedation each day to assess mental status. 7. Case was discussed with the daughter. Job#: [id number] EV MTDAnge
[2018-03-17 15:56] LABS: ABG HCO3 35 mmol/L (23-28); ABG PCO2 45 mmHg (41-51); ABG PO2 79 mmHg (80-105)
--- NOTE | 2018-03-17 16:24 | Diagnostic Imaging Report ---
Procedure: Right internal jugular non-tunneled hemodialysis catheter placement with ultrasound guidance wood grinder operator: Dr. Bob Foster Pre-operative diagnosis: Requiring HD access. Post-operative diagnosis: Status post HD access placement Sedation: Local The patient's heart rate and pulse oximetry were continuously monitored by the ICU nurse Additional Medications: Lidocaine 1% for local anesthesia Estimated blood loss: Minimal Specimens: None Implants: 13 Fr x 15 cm Trialysis non-tunneled hemodialysis catheter TECHNIQUE/FINDINGS: Informed consent was obtained from the healthcare proxy and documented in the medical record after discussion of risks and benefits. The patient was placed in the supine position. Preliminary sonographic evaluation of the right neck confirmed a patent and compressible right internal jugular vein. The neck was then prepped and draped in a standard sterile fashion. Subsequently, 1% lidocaine was infiltrated into the skin and subcutaneous tissues for local anesthesia. Then under continuous sonographic guidance an 21 gauge needle was advanced into the right internal jugular vein and a .018'' wire was placed. A 5 Fr micropuncture sheath was placed and the existing wire was exchanged for an .035'' Amplatz wire. The tract was sequentially dilated. Then, a 13 Fr x 15 cm Trialysis triple lumen non-tunneled hemodialysis catheter was advanced. The wire was then removed. Each lumen was tested and showed adequate bidirectional flow. The catheter was secured to the skin with Monocryl, flushed with saline, and covered by a sterile dressing. No evidence of immediate complication. IMPRESSION: Placement of a right IJ non-tunneled triple lumen hemodialysis catheter with ultrasound guidance as above. Signed by: Dr. Bob Foster MD on 03/17/2018 4:21 PM
--- NOTE | 2018-03-17 16:31 | Diagnostic Imaging Report ---
EXAMINATION: CHEST SINGLE (PORTABLE) INDICATION: Status post right IJ line placement COMPARISON: Chest radiograph 03/17/2018 at 617 AM. FINDINGS: TUBES and LINES: Interval placement of a right IJ non-tunneled hemodialysis catheter, the catheter tip terminates in the expected location of the SVC, accounting for the patient's obliquity. Endotracheal tube terminates 4.9 cm above the edin. Enteric tube courses into the stomach, the tip is not in the field of view. LUNGS: Lungs are not well inflated. Unchanged left retrocardiac and right lung base opacities. There is perihilar interstitial opacities, consistent with interstitial edema. PLEURA: Small left pleural effusion is stable.No evidence of pneumothorax. HEART AND MEDIASTINUM: Cardiac size is moderately enlarged. There are atherosclerotic calcifications within the aorta. BONES AND SOFT TISSUES: No acute osseous lesion. Soft tissues are unremarkable. UPPER ABDOMEN: No free air under the diaphragm. IMPRESSION: Right IJ non-tunneled hemodialysis catheter terminates at the expected location of the SVC. No evidence of pneumothorax. Similar appearance of pulmonary interstitial edema and small left pleural effusion. Lower lung zone opacities which may represent aspiration or pneumonia. Follow-up radiographs suggested to assess for resolution. Signed by: Dr. Bob Foster MD on 03/17/2018 4:27 PM
--- NOTE | 2018-03-17 19:09 | Progress Note ---
DATE: March 16, 2018 TIME OF SERVICE: 7:30 a.m. OVERNIGHT: No change. REVIEW OF SYSTEMS: Unobtainable. PHYSICAL EXAMINATION VITAL SIGNS: Reviewed. GENERAL APPEARANCE: Tired-appearing man resting in bed. HEENT: ET tube in place. CARDIOVASCULAR: Normal S1 and S2. LUNGS: Moderate breath sounds. ABDOMEN: Soft and nontender. EXTREMITIES: No edema. SKIN: Dry. PSYCHIATRIC: Unable to assess. NEUROLOGICAL: Not interactive. LABS: Reviewed. MEDICATIONS: Reviewed. ASSESSMENT: A 77-year-old man with; 1. Acute respiratory failure. 2. Acute metabolic encephalopathy. 3. Hypertensive emergency. 4. Transient ischemic attack. 5. Abnormal EKG. 6. Right lung aspiration pneumonia with methicillin-sensitive Staphylococcus aureus. 7. Ambulatory dysfunction. 8. Acute kidney injury in the setting of chronic kidney disease, likely stage 4. 9. Hyperammonemia. 10. Urinary tract infection. 11. Low normal vitamin B12. PLAN: 1. Continue medical management. 2. Continue vent support. 3. Await clinical improvement and awaking of the patient. 4. Keep in the ICU while intubated. Job#: [id number]
--- NOTE | 2018-03-17 19:15 | Progress Note ---
DATE: March 17, 2018 TIME OF SERVICE: 6:30 a.m. SUBJECTIVE: Overnight no events. REVIEW OF SYSTEMS: Unobtainable. PHYSICAL EXAMINATION VITAL SIGNS: Reviewed. GENERAL APPEARANCE: Tired-appearing man resting in bed. HEENT: ET tube in place. CARDIOVASCULAR: Normal S1 and S2. LUNGS: Moderate breath sounds. ABDOMEN: Soft and nontender. EXTREMITIES: No edema. SKIN: Dry. PSYCHIATRIC: Unable to assess. NEUROLOGICAL: Not interactive. LABS: Reviewed. MEDICATIONS: Reviewed. ASSESSMENT: A 77-year-old man with; 1. Acute respiratory failure. 2. Acute metabolic encephalopathy. 3. Transient ischemic attack. 4. Hypertensive emergency. 5. Right lung pneumonia with methicillin-sensitive Staphylococcus aureus. 6. Acute kidney injury secondary to chronic kidney disease, likely stage 1. 7. Hyperammonemia. 8. Urinary tract infection. 9. Low vitamin B12. PLAN: 1. Continue vent support. 2. Await awakening of the patient. 3. Continue broad-spectrum antibiotics. 4. Vancomycin 5. Check basic metabolic panel. Job#: [id number]
[2018-03-17] MEDS: PROPOFOL IV EMULSION 10MG/ML 100 ML IV SCH (19:47)
[2018-03-17] MEDS: HEPARIN SOD (PORCINE) 1000 UNIT/ML SDV IV PRN (20:34)
[2018-03-18] VITALS (92 sets, daily range): BP systolic 72–146; BP diastolic 40–112
[2018-03-18 05:21] LABS: ANION GAP 17.3 mmol/L (8-16); CALCIUM 9.3 mg/dL (8.4-10.2); CREATININE, SERUM 2.84 mg/dL (0.72-1.25); MAGNESIUM 1.9 MG/DL (1.3-2.1); PHOSPHORUS 4.5 MG/DL (2.3-4.7); POTASSIUM 4.3 mmol/L (3.5-5.1)
[2018-03-18] MEDS: LEVOTHYROXINE SODIUM 100 MCG/VIAL IV SCH (06:06)
--- NOTE | 2018-03-18 06:38 | Diagnostic Imaging Report ---
EXAM: CHEST SINGLE (PORTABLE), AP 1 view INDICATION: Respiratory failure COMPARISON: AP view the chest March 17, 2018 FINDINGS: LINES/TUBES: Stable lines and tubes LUNGS: Stable bibasilar airspace opacities. Probable interstitial edema. PLEURA: Possible left pleural effusion. HEART AND MEDIASTINUM: Stable BONES AND SOFT TISSUES: No acute findings. IMPRESSION: No interval change. Signed by: Dr. Renetta Maldonado M.D. on 03/18/2018 6:35 AM
[2018-03-18] MEDS: ALBUTEROL/IPRATROPIUM 3 ML NEB NEB SCH ×4 (07:15→19:02)
[2018-03-18] MEDS: LABETALOL HCL 5 MG/ML 20ML VIAL IV SCH ×2 (09:00→21:00)
[2018-03-18] MEDS: CYANOCOBALAMIN INJ 1,000 MCG/ML VIAL IM SCH (09:41)
[2018-03-18] MEDS: PANTOPRAZOLE 40 MG 10ML VIAL IV SCH ×2 (09:41→17:28)
[2018-03-18] MEDS: VANCOMYCIN 750MG/NS 150ML IVPB 150 ML IV SCH (09:41)
[2018-03-18] MEDS: ASPIRIN 81 MG CHEW TAB PEG SCH (09:41)
[2018-03-18] MEDS: AMLODIPINE BESYLATE 10 MG TAB PO SCH (09:42)
[2018-03-18] MEDS: THIAMINE HCL 100 MG TAB PO SCH (09:42)
[2018-03-18] MEDS: HEPARIN SOD (PORCINE) 5,000 UNIT/ML VIAL SC SCH ×2 (09:43→21:41)
[2018-03-18] MEDS: BALSAM PERU/CASTOR OIL 60 GM OINT...G. TP SCH ×2 (09:48→21:36)
[2018-03-18] MEDS: MUPIROCIN 2% OINT 22 GM TUBE TOP SCH (09:48)
[2018-03-18] MEDS: CEFEPIME HCL 1 GM VIAL IV SCH (11:28)
--- NOTE | 2018-03-18 14:16 | Progress Note ---
DATE: March 18, 2018 PSYCHIATRIC PROGRESS NOTE INTERVAL HISTORY: Patient evaluated and events noted. Upon evaluation today patient is found to be in ICU. He is still intubated and not able to answer any questions. He is not on any sedation. He is also in restraints. As per the nursing staff, patient is not doing well from respiratory standpoint and will stay intubated for at least 24 hours. DIAGNOSES AXIS I 1. Unspecified psychosis/delirium. 2. Rule out dementia. PLAN OF CARE: Continue p.r.n. medications for now and monitor for agitation. Job#: [id number] EV
[2018-03-18] MEDS: LEVOFLOXACIN 250MG/D5W 50ML 50 ML IV SCH (15:25)
[2018-03-18] MEDS: PROPOFOL IV EMULSION 10MG/ML 100 ML IV SCH (20:00)
[2018-03-19] VITALS (108 sets, daily range): BP systolic 71–168; BP diastolic 40–116
[2018-03-19] MEDS: ALBUTEROL/IPRATROPIUM 3 ML NEB NEB SCH ×4 (02:10→19:32)
[2018-03-19 04:39] LABS: BASOPHILS # (AUTO) 0.1 (0.0-0.1); BASOPHILS % 0.5 % (0.0-1.0); EOSINOPHILS # (AUTO) 0.1 (0.0-0.4); EOSINOPHILS % 0.5 % (0.0-6.0); HEMATOCRIT 33.5 % (38.2-49.6); HEMOGLOBIN 10.5 g/dL (14.0-18.0); LYMPHOCYTES # (AUTO) 1.9 (1.0-3.2); LYMPHOCYTES % 11.7 % (18.0-39.1); MEAN CORPUSCULAR HEMOGLOBIN 30.8 pg (28-32); MEAN CORPUSCULAR HGB CONC 31.3 g/dL (31-35); MEAN CORPUSCULAR VOLUME 98.2 fL (81-99); MONOCYTES # (AUTO) 1.3 (0.2-0.8); MONOCYTES % 8.3 % (4.4-11.3); NEUTROPHILS % 69.2 % (38.7-80.0); PLATELET COUNT 263 x10e3/uL (140-360); RED BLOOD COUNT 3.41 x10e6/uL (4.3-5.7)
[2018-03-19 05:11] LABS: ALBUMIN 1.8 g/dL (3.5-5.0); ALBUMIN/GLOBULIN RATIO 0.4 (0.8-2.0); ANION GAP 20.1 mmol/L (8-16); CALCIUM 9.1 mg/dL (8.4-10.2); CREATININE, SERUM 4.56 mg/dL (0.72-1.25); POTASSIUM 4.1 mmol/L (3.5-5.1)
[2018-03-19] MEDS: LEVOTHYROXINE SODIUM 100 MCG/VIAL IV SCH (06:08)
--- NOTE | 2018-03-19 07:32 | Diagnostic Imaging Report ---
Examination: Single AP view of the chest. COMPARISON: 03/18/2018 INDICATION: Respiratory failure DISCUSSION: Endotracheal tube, enteric tube, and right internal jugular high flow central venous catheter are unchanged in position.. Unchanged multifocal patchy opacities predominantly within the lower lung zones. Small left pleural effusion is suspected. Stable cardiomediastinal contour. IMPRESSION: Stable position of support lines and tubes. Patchy lower lobe predominant airspace opacities may reflect atelectasis or multifocal pneumonia. Trace left pleural effusion. Signed by: Dr. Davy Escobedo M.D. on 03/19/2018 7:29 AM
[2018-03-19 07:35] LABS: EOSINOPHILS % (MANUAL) 1 % (0-7); LYMPHOCYTES % (MANUAL) 16 % (19-48); MONOCYTES % (MANUAL) 6 % (3.4-9.0); NEUTROPHILS % (MANUAL) 77 % (40-74)
[2018-03-19 07:36] LABS: ANISOCYTOSIS MODERATE; HYPOCHROMASIA SLIGHT; PLATELET ESTIMATE ADEQUATE; TOXIC GRANULATION SLIGHT
[2018-03-19 07:40] LABS: PLATELET MORPHOLOGY COMMENT FEW GIANT
[2018-03-19 07:42] LABS: RBC MORPHOLOGY COMMENT NORMAL
--- NOTE | 2018-03-19 07:59 | Progress Note ---
DATE: March 18, 2018 TIME: 7 a.m. OVERNIGHT: No change. REVIEW OF SYSTEMS: Unobtainable. PHYSICAL EXAMINATION VITAL SIGNS: Reviewed. GENERAL: A tired-appearing man resting in bed. HEENT: ET tube in place. CARDIOVASCULAR: Normal S1 and S2. LUNGS: Moderate breath sounds. ABDOMEN: Soft and nontender. EXTREMITIES: No edema. SKIN: Dry. PSYCHIATRIC: Unable to assess. NEUROLOGIC: Not interactive. LABS: Reviewed. MEDICATIONS: Reviewed. ASSESSMENT: A 77-year-old man with: 1. Acute respiratory failure. 2. Acute metabolic encephalopathy. 3. Transient ischemic attack. 4. Hypertensive emergency. 5. Right lung pneumonia with methicillin-sensitive Staphylococcus aureus. 6. Acute kidney injury in the setting of chronic kidney disease, likely stage 3. 7. Hyperammonemia. 8. Urinary tract infection. 9. Low vitamin B12. PLAN 1. Continue vent support. 2. Await awakening of the patient. 3. Continue antibiotics. 4. Check ammonia level. Job#: [id number] SHOSHANA
--- NOTE | 2018-03-19 08:03 | Progress Note ---
DATE: March 19, 2018 TIME: 7:30 a.m. OVERNIGHT: No change. REVIEW OF SYSTEMS: Unobtainable. PHYSICAL EXAMINATION VITAL SIGNS: Reviewed. GENERAL: A tired-appearing man resting in bed. HEENT: ET tube in place. CARDIOVASCULAR: Normal S1 and S2. LUNGS: Moderate breath sounds. ABDOMEN: Soft, nontender and nondistended. EXTREMITIES: No edema. SKIN: Dry. PSYCHIATRIC: Unable to assess. NEUROLOGIC: Not interactive. LABS: Reviewed. MEDICATIONS: Reviewed. ASSESSMENT: A 77-year-old man with: 1. Acute respiratory failure. 2. Acute metabolic encephalopathy. 3. Transient ischemic attack. 4. Hypertensive emergency. 5. Right lung pneumonia with methicillin-sensitive Staphylococcus aureus. 6. Acute kidney injury in the setting of chronic kidney disease, likely stage 3. 7. Hyperammonemia. 8. Urinary tract infection. 9. Low B12. PLAN 1. Continue vent support. Spontaneous weaning trials. 2. Await awakening of the patient. 3. Continue broad-spectrum antibiotics. 4. New leukocytosis while on cefepime, Levaquin and vancomycin. 5. Continue supportive care. The patient may need trach, but will monitor him over the weekend and give him some time to recover. I have discussed with the patient's daughter at bedside. Job#: [id number] SHOSHANA
--- NOTE | 2018-03-19 08:22 | Progress Note ---
DATE: 03/19/2018 PULMONARY CRITICAL CARE PROGRESS NOTE The patient underwent dialysis yesterday. We placed him on a spontaneous breathing trial this morning, but he quickly became tachypneic. He was agitated during the night, but does not have any purposeful movements. He does not respond to commands or seem to recognize his daughter. PHYSICAL EXAMINATION VITALS: The patient is afebrile. His temperature earlier was 99.2. His blood pressure is 127/89. He is on assist control mode of ventilation at a rate of 16. HEENT: Shows no facial swelling or erythema. There is an oral endotracheal tube in place. LYMPHATICS: Shows no submandibular, cervical or supraclavicular adenopathy. NECK: Shows no JVD or thyromegaly. CARDIAC: Reveals a regular rate and rhythm with a normal S1 and S2. There are no murmurs or rubs. LUNGS: Auscultation of the lungs reveals rhonchus breath sounds bilaterally. There is no wheezing. ABDOMEN: Soft and nontender. There is no rebound or guarding. EXTREMITIES: Shows no leg edema or calf tenderness. There is no cyanosis or clubbing. SKIN: Shows no rashes. LABORATORY DATA: White blood cell count is 15.9 with a hemoglobin of 10.5, and a platelet count of 263,000. The BUN to creatinine ratio is 120 to 4.56. The electrolytes are within normal limits. Chest x-ray shows no changes. There is still bibasilar infiltrates. IMPRESSION 1. Bnyhw-cr-bybyvvb respiratory failure. 2. Staphylococcus aureus pneumonia with septic shock. 3. Zgpxk-zl-nmqhebn renal failure. 4. Metabolic encephalopathy. 5. Hypertension. PLAN 1. Continue current antibiotic regimen. 2. Monitor neurological status closely. 3. Continue dialysis. 4. Repeat spontaneous breathing trial tomorrow. 5. Consult Dr. Sanders for possible tracheostomy. 6. Case discussed with the daughter. She understands the prognosis is poor, and is considering options. Greater than 35 minutes in direct critical care time. Job#: [id number] SHOSHANA PRECIADO
[2018-03-19] MEDS ORDERED: MIDAZOLAM HCL 2 MG/2 ML VIAL IV STA (08:57)
[2018-03-19] MEDS: LABETALOL HCL 5 MG/ML 20ML VIAL IV SCH ×2 (09:00→21:13)
[2018-03-19] MEDS: VANCOMYCIN 750MG/NS 150ML IVPB 150 ML IV SCH (09:00)
[2018-03-19] MEDS: HEPARIN SOD (PORCINE) 1000 UNIT/ML SDV IV PRN (09:11)
[2018-03-19] MEDS ORDERED: NOREPINEPHRINE INJ 4MG/4ML 8 MG in DEXTROSE 5% 250ML 250 ML IV PRN (09:15)
[2018-03-19] MEDS: PROPOFOL IV EMULSION 10MG/ML 100 ML IV SCH ×3 (09:58→23:57)
[2018-03-19] MEDS: CYANOCOBALAMIN INJ 1,000 MCG/ML VIAL IM SCH (14:35)
[2018-03-19] MEDS: PANTOPRAZOLE 40 MG 10ML VIAL IV SCH ×2 (14:35→17:00)
[2018-03-19] MEDS: HEPARIN SOD (PORCINE) 5,000 UNIT/ML VIAL SC SCH ×2 (14:36→21:14)
[2018-03-19] MEDS: ASPIRIN 81 MG CHEW TAB PEG SCH (14:38)
[2018-03-19] MEDS: BALSAM PERU/CASTOR OIL 60 GM OINT...G. TP SCH ×2 (14:38→21:13)
[2018-03-19] MEDS: THIAMINE HCL 100 MG TAB PO SCH (14:38)
[2018-03-19] MEDS: MUPIROCIN 2% OINT 22 GM TUBE TOP SCH (14:38)
[2018-03-19] MEDS: LEVOFLOXACIN 250MG/D5W 50ML 50 ML IV SCH (14:40)
[2018-03-19] MEDS ORDERED: NOREPINEPHRINE 8 MG/D5W 250 ML 250 ML IV PRN (15:15)
[2018-03-19] MEDS: AMLODIPINE BESYLATE 10 MG TAB PO SCH (15:30)
--- NOTE | 2018-03-19 19:39 | Consultation ---
DATE OF CONSULTATION: March 19, 2018 HISTORY OF PRESENT ILLNESS: I was kindly asked to see this 77-year-old man for evaluation of tracheostomy tube placement. The patient has been on ventilator since March 09, 2018 and is anticipated he will continue to need ventilator support and subsequent pulmonary toilette. His history of present illness, past medical history, and past surgical history were reviewed in detail in the chart. PHYSICAL EXAMINATION: The patient is intubated and sedated. There is no abnormal neck anatomy noted. ASSESSMENT: Respiratory failure. PLAN: Tracheostomy. Job#: [id number]
[2018-03-20] VITALS (103 sets, daily range): BP systolic 80–155; BP diastolic 43–90
[2018-03-20] MEDS: ALBUTEROL/IPRATROPIUM 3 ML NEB NEB SCH ×4 (01:25→19:35)
[2018-03-20] MEDS: LEVOTHYROXINE SODIUM 100 MCG/VIAL IV SCH (05:30)
--- NOTE | 2018-03-20 07:43 | Diagnostic Imaging Report ---
Examination: Single AP view of the chest. COMPARISON: 03/19/2018 INDICATION: Intubation. DISCUSSION: TUBES and LINES: Right IJ non-tunneled hemodialysis catheter, the catheter tip terminates in the expected location of the SVC, accounting for the patient's obliquity. Endotracheal tube terminates 4.5 cm above the edin. Enteric tube courses into the stomach, the tip is not in the field of view. LUNGS: Lungs are not well inflated. Increased left retrocardiac and similar appearance of right lung base opacities. No evidence of pulmonary edema. PLEURA: Small left pleural effusion is stable.No evidence of pneumothorax. HEART AND MEDIASTINUM: Cardiac size is moderately enlarged. There are atherosclerotic calcifications within the aorta. BONES AND SOFT TISSUES: No acute osseous lesion. Soft tissues are unremarkable. UPPER ABDOMEN: No free air under the diaphragm. IMPRESSION: Lower lung zone opacities, increased on the left and unchanged on the right, which could reflect pneumonia or atelectasis. Small left pleural effusion. Lines and tubes as above. No evidence of pneumothorax. Signed by: Dr. Bob Foster MD on 03/20/2018 7:40 AM
[2018-03-20 08:27] LABS: BASOPHILS # (AUTO) 0.1 (0.0-0.1); BASOPHILS % 0.5 % (0.0-1.0); EOSINOPHILS # (AUTO) 0.3 (0.0-0.4); EOSINOPHILS % 2.6 % (0.0-6.0); HEMOGLOBIN 10.3 g/dL (14.0-18.0); LYMPHOCYTES # (AUTO) 1.2 (1.0-3.2); LYMPHOCYTES % 10.2 % (18.0-39.1); MEAN CORPUSCULAR HEMOGLOBIN 30.6 pg (28-32); MEAN CORPUSCULAR HGB CONC 31.2 g/dL (31-35); MEAN CORPUSCULAR VOLUME 97.9 fL (81-99); MONOCYTES # (AUTO) 0.9 (0.2-0.8); MONOCYTES % 7.3 % (4.4-11.3); NEUTROPHILS # (AUTO) 8.4 (2.1-6.9); NEUTROPHILS % 70.7 % (38.7-80.0); PLATELET COUNT 250 x10e3/uL (140-360); RED BLOOD COUNT 3.37 x10e6/uL (4.3-5.7); RED CELL DISTRIBUTION WIDTH 13.7 % (11.7-14.4)
[2018-03-20] MEDS: ASPIRIN 81 MG CHEW TAB PEG SCH (09:00)
[2018-03-20] MEDS: HEPARIN SOD (PORCINE) 5,000 UNIT/ML VIAL SC SCH ×2 (09:00→21:00)
[2018-03-20] MEDS: LABETALOL HCL 5 MG/ML 20ML VIAL IV SCH ×2 (09:00→21:00)
[2018-03-20] MEDS: AMLODIPINE BESYLATE 10 MG TAB PO SCH (09:25)
[2018-03-20] MEDS: BALSAM PERU/CASTOR OIL 60 GM OINT...G. TP SCH ×2 (09:25→21:00)
[2018-03-20] MEDS: THIAMINE HCL 100 MG TAB PO SCH (09:25)
[2018-03-20] MEDS: CYANOCOBALAMIN INJ 1,000 MCG/ML VIAL IM SCH (09:25)
[2018-03-20] MEDS: MUPIROCIN 2% OINT 22 GM TUBE TOP SCH (09:25)
[2018-03-20] MEDS: PANTOPRAZOLE 40 MG 10ML VIAL IV SCH ×2 (09:25→18:33)
[2018-03-20 09:46] LABS: INR 1.11; PROTHROMBIN TIME 15.3 seconds (11.9-14.5)
[2018-03-20 09:50] LABS: PARTIAL THROMBOPLASTIN TIME 36.6 seconds (23.8-35.5)
[2018-03-20 09:51] LABS: ALBUMIN 2.2 g/dL (3.5-5.0); ALBUMIN/GLOBULIN RATIO 0.5 (0.8-2.0); ANION GAP 21.7 mmol/L (8-16); CREATININE, SERUM 4.05 mg/dL (0.72-1.25); POTASSIUM 4.7 mmol/L (3.5-5.1)
[2018-03-20 11:45] LABS: ABG HCO3 28 mmol/L (23-28); ABG PCO2 40 mmHg (41-51); ABG PH 7.46 (7.31-7.41); ABG PO2 100 mmHg (80-105)
[2018-03-21] VITALS (90 sets, daily range): BP systolic 60–165; BP diastolic 39–136
[2018-03-21] MEDS: ALBUTEROL/IPRATROPIUM 3 ML NEB NEB SCH ×4 (00:45→19:20)
[2018-03-21] MEDS: LEVOTHYROXINE SODIUM 100 MCG/VIAL IV SCH (05:52)
--- NOTE | 2018-03-21 07:28 | Diagnostic Imaging Report ---
EXAMINATION: CHEST SINGLE (PORTABLE) INDICATION: \S\Resp Failure \[id number] \S\[id number] COMPARISON: 03/20/2018 FINDINGS: AP view TUBES and LINES: Stable endotracheal tube, nasogastric tube, and right internal jugular central catheter. LUNGS: Lungs are well inflated. Mildly improved mild left basilar opacification. PLEURA: No pleural effusion or pneumothorax. HEART AND MEDIASTINUM: The cardiomediastinal silhouette is enlarged. Aorta is calcified and tortuous. BONES AND SOFT TISSUES: No acute osseous lesion. Soft tissues are unremarkable. UPPER ABDOMEN: No free air under the diaphragm. IMPRESSION: Mildly improved left basilar opacification, representing improved atelectasis/effusion or pneumonia. Signed by: Dr. Norm Seay MD on 03/21/2018 7:24 AM
--- NOTE | 2018-03-21 08:33 | Progress Note ---
DATE: March 21, 2018 PULMONARY PROGRESS NOTE SUBJECTIVE: Sedation was held during the night and the patient seems more awake. He does respond to some simple commands. He was placed on a spontaneous breathing trial this morning, but became tachypneic. He had to be switched back to PRVC. OBJECTIVE VITAL SIGNS: Blood pressure is 137/85 and the pulse is 79. His temperature is 100.2. HEENT: Shows no facial swelling or erythema. He has an oral endotracheal tube in place. CARDIAC: Reveals regular rate and rhythm with normal S1 and S2. There are no murmurs or rubs. LUNGS: Auscultation of the lungs reveals rhonchorous breath sounds bilaterally. There is now wheezing. ABDOMEN: Soft and nontender. There is no rebound or guarding. EXTREMITIES: Shows no leg edema or calf tenderness. There is no cyanosis or clubbing. SKIN: Shows no rashes. LABORATORY DATA: White blood cell count is 11.8 with hemoglobin of 10.3. The platelet count is 250. The XTH-hw-bzzaugyccg ratio is still 81/4.05. The other electrolytes are within normal limits. IMPRESSION 1. Ulzog-wb-gqlfbui respiratory failure. 2. Staphylococcus aureus pneumonia with septic shock. 3. Gecmd-aa-xumnfdl renal failure. 4. Metabolic encephalopathy. 5. Hypertension. PLAN 1. Continue to monitor the patient's mental status with current antibiotic regimen and continue dialysis. 2. Spontaneous breathing trials each morning. Ideally, we would like a trial of extubation prior to doing a tracheostomy. 3. Repeat chest x-ray in the morning. 4. Repeat labs in the morning. 5. Case discussed with the nursing staff, Dr. Doherty, and daughter. Job#: [id number] BARI
[2018-03-21] MEDS: LABETALOL HCL 5 MG/ML 20ML VIAL IV SCH ×2 (09:00→21:02)
[2018-03-21] MEDS: CYANOCOBALAMIN INJ 1,000 MCG/ML VIAL IM SCH (10:00)
[2018-03-21] MEDS: HEPARIN SOD (PORCINE) 5,000 UNIT/ML VIAL SC SCH ×2 (10:00→21:05)
[2018-03-21] MEDS: PANTOPRAZOLE 40 MG 10ML VIAL IV SCH ×2 (10:00→17:56)
[2018-03-21] MEDS: THIAMINE HCL 100 MG TAB PO SCH (10:00)
[2018-03-21] MEDS: ASPIRIN 81 MG CHEW TAB PEG SCH (10:00)
[2018-03-21] MEDS: BALSAM PERU/CASTOR OIL 60 GM OINT...G. TP SCH ×2 (10:09→21:12)
[2018-03-21] MEDS: MUPIROCIN 2% OINT 22 GM TUBE TOP SCH (10:09)
[2018-03-21] MEDS: AMLODIPINE BESYLATE 10 MG TAB PO SCH (11:05)
--- NOTE | 2018-03-21 13:54 | Progress Note ---
DATE: March 21, 2018 SUBJECTIVE: Remains intubated, seen on dialysis for clearance both metabolic and fluid. OBJECTIVE VITAL SIGNS: Pulse 69, blood pressure 125/89, respiratory rate 17, temperature 98.7. HEENT: Orally intubated. CHEST: Crackles. EXTREMITIES: Trace edema. NEUROLOGIC: Appears to be agitated at times. LABS: Chest x-ray is showing evidence of some pneumonia as well as possibly some fluid. Yesterday, BUN 81 and creatinine 5.4. ASSESSMENT 1. Acute kidney injury, presumed acute tubular necrosis. 2. Fluid overload. 3. Oliguria with urine output only 200 mL. PLAN 1. Hemodialysis today, plan a 4-hour run, blood flow rate 300 mL per minute. 2. Dialysate fluid flow rate 700 mL per minute, fluid removal 2 liters as tolerated. 3. Mannitol and albumin support for blood pressure. 4. Two potassium bath, F180 filter. We will follow along. Job#: [id number] MOISES
--- NOTE | 2018-03-21 19:56 | Progress Note ---
DATE: March 20, 2018 TIME: 07:00 a.m. OVERNIGHT: Vancomycin is supratherapeutic. REVIEW OF SYSTEMS: Unobtainable. PHYSICAL EXAMINATION VITAL SIGNS: Reviewed. GENERAL: A tired-appearing man resting in bed. HEENT: Atraumatic. Has ET tube in place. CARDIOVASCULAR: Normal S1 and S2. LUNGS: Moderate breath sounds ABDOMEN: Soft, nontender. EXTREMITIES: No edema. SKIN: Dry. PSYCHIATRIC: Flat affect. NEUROLOGIC: He is awake. LABS: Reviewed. MEDICATIONS: Reviewed. ASSESSMENT: A 77-year-old man with; 1. Acute respiratory failure. 2. Acute metabolic encephalopathy. 3. Transient ischemic attack. 4. Hypertensive emergency. 5. Right lung pneumonia with methicillin-sensitive Staphylococcus aureus. 6. Acute kidney injury on chronic kidney disease likely stage 3, requiring hemodialysis. 7. Hyperammonemia. 8. Urinary tract infection. 9. Low B12. 10. Supratherapeutic vancomycin. PLAN 1. Discontinue vancomycin. 2. Hemodialysis seems to be adequate with patient's cognition. 3. Continue vent support. 4. Daughter does not want a tracheostomy. 5. Monitor closely in the ICU. Job#: [id number] SHAHEEN
--- NOTE | 2018-03-21 20:26 | Progress Note ---
DATE: March 21, 2018 TIME: 6:00 a.m. OVERNIGHT: Patient awake after initiation of hemodialysis. REVIEW OF SYSTEMS: Unobtainable. PHYSICAL EXAMINATION VITAL SIGNS: Reviewed. GENERAL: A tired-appearing man resting in bed. HEENT: Atraumatic. ET tube in place. CARDIOVASCULAR: Normal S1 and S2. LUNGS: Moderate breath sounds ABDOMEN: Soft, nontender. EXTREMITIES: No edema. SKIN: Dry. PSYCHIATRIC: Flat affect. NEUROLOGIC: Awake. LABS: Reviewed. MEDICATIONS: Reviewed. ASSESSMENT: A 77-year-old man with; 1. Acute respiratory failure. 2. Acute metabolic encephalopathy. 3. Transient ischemic attack. 4. Hypertensive emergency. 5. Right lung pneumonia with methicillin-sensitive Staphylococcus aureus. 6. Acute kidney injury on chronic kidney disease, stage 3, requiring hemodialysis. 7. Hyperammonemia. 8. Urinary tract infection. 9. Low B12. 10. Supratherapeutic vancomycin. 11. Hyperphosphatemia. PLAN 1. Vancomycin discontinued. 2. Patient's condition improved with hemodialysis. Patient is now awake. 3. Continue vent support. 4. Continue management. 5. Continue to monitor over the weekend. On Friday, we will further discuss with daughter, but she does not want tracheostomy. Job#: [id number] SHAHEEN
[2018-03-22] VITALS (62 sets, daily range): BP systolic 85–151; BP diastolic 45–115
[2018-03-22] MEDS: ALBUTEROL/IPRATROPIUM 3 ML NEB NEB SCH ×4 (02:05→19:16)
[2018-03-22 05:09] LABS: ANION GAP 20.5 mmol/L (8-16); CALCIUM 9.2 mg/dL (8.4-10.2); CREATININE, SERUM 3.79 mg/dL (0.72-1.25); POTASSIUM 4.5 mmol/L (3.5-5.1)
[2018-03-22] MEDS: LEVOTHYROXINE SODIUM 100 MCG/VIAL IV SCH (05:41)
--- NOTE | 2018-03-22 07:40 | Diagnostic Imaging Report ---
EXAM: XR CHEST 1 VIEW DATE: 03/22/2018 6:30 AM INDICATION: Respiratory failure COMPARISON: 03/21/2018, no report FINDINGS: Lines and Tubes: Right IJ catheter tip overlying SVC. ET tube with tip above edin and NG tube coursing past the inferior field of view. Heart and Mediastinum: Aortic vascular calcifications. Prominence pulmonary trunk. Lungs and Pleura: Scattered asymmetric to the right airspace opacities with probable trace effusions. Bones and Soft Tissues: No acute findings. IMPRESSION: 1. Asymmetric to the right opacities could represent edema and/or pneumonia. 2. Prominent pulmonary trunk suggesting pulmonary hypertension. Signed by: Dr. Ronald Knight MD on 03/22/2018 7:37 AM
[2018-03-22] MEDS: CYANOCOBALAMIN INJ 1,000 MCG/ML VIAL IM SCH (08:11)
[2018-03-22] MEDS: AMLODIPINE BESYLATE 10 MG TAB PO SCH (08:11)
[2018-03-22] MEDS: ASPIRIN 81 MG CHEW TAB PEG SCH (08:11)
[2018-03-22] MEDS: PANTOPRAZOLE 40 MG 10ML VIAL IV SCH ×2 (08:11→17:00)
[2018-03-22] MEDS: THIAMINE HCL 100 MG TAB PO SCH (08:11)
[2018-03-22] MEDS: MUPIROCIN 2% OINT 22 GM TUBE TOP SCH (08:12)
[2018-03-22] MEDS: BALSAM PERU/CASTOR OIL 60 GM OINT...G. TP SCH ×2 (08:45→21:00)
[2018-03-22] MEDS: LABETALOL HCL 5 MG/ML 20ML VIAL IV SCH ×2 (09:00→21:00)
[2018-03-22] MEDS ORDERED: LACTULOSE SYRUP 20 GM/30 ML UDC PO PRN (10:15)
--- NOTE | 2018-03-22 11:10 | Progress Note ---
DATE: March 22, 2018 TIME: 10:00 a.m. OVERNIGHT: No acute events. REVIEW OF SYSTEMS: Unobtainable. PHYSICAL EXAMINATION VITAL SIGNS: T 99.3, P 73, R 22, BP 137/60, pulse ox 100% on mechanical ventilation support. GENERAL: This is very tired-appearing man, resting in bed. HEENT: Normocephalic, oral mucosa dry and intact with ET tube secured, trachea midline. CV: S1 and S2 auscultated with regular rate. LUNGS: Bilateral breath sounds are moderate in all jeffrey with some scattered rhonchi, left greater than right. ABDOMEN: No distension, some palpable induration at right lower quadrant; hypoactive bowel sounds. EXTREMITIES: Without edema. Poor capillary refill. SKIN: Dry. PSYCHIATRIC: Unable to assess. NEUROLOGIC: Patient responds to sternal rub with grimace. Nurse at bedside is able to stimulate patient to open eyes x1. LABS: Na 142, K 4.5, Cl 102, CO2 of 24, gap 20.5, BUN 52, creatinine 3.79 with a GFR of 16. Hfwqx-or-ouvf glucose reviewed, a.m. glucose 214. WBC is 11.8 and H and H 10.3 and 33 respectively. MEDICATIONS: Reviewed. ASSESSMENT AND PLAN: This is a 77-year-old man with; 1. Acute respiratory failure. Ventilator management per pulmonology, note reviewed. 2. Acute metabolic encephalopathy. 3. Transient ischemic attack. 4. Hypertensive emergency, resolved. 5. Right lung pneumonia with methicillin-resistant Staphylococcus aureus. Previous vancomycin therapy on hold at this time. 6. Acute kidney injury on chronic kidney disease, stage 3. Hemodialysis ongoing. Catheter pending replacement tomorrow. 7. Hyperammonemia, resolved. Scheduled lactulose on hold, adding p.r.n. lactulose this day for constipation. 8. Urinary tract infection. 9. Low B12. 10. Supratherapeutic vancomycin, on hold. 11. Hyperphosphatemia. Followup values in the a.m. 12. Prophylaxis is Protonix and sequential compression devices. DISPOSITION: Discussed with daughter and RN at bedside. Final decision concerning tracheostomy is still pending. Per RN, family now considering possible hospice care. Follow up a.m. values. Dictated by: Ileana Garibay NP Job#: [id number] PAT
[2018-03-22] MEDS: MORPHINE SULFATE 2 MG/ML SYR IV PRN ×2 (17:14→20:51)
--- NOTE | 2018-03-22 18:58 | Progress Note ---
DATE: March 22, 2018 PULMONARY MEDICINE PROGRESS NOTE SUBJECTIVE: Mr. Gomez was seen and examined at bedside. He continues to have encephalopathic state. He is moving a lot in bed. Patient remains intubated, on ventilator. I discussed with scarf gluer, urologist, PCP. I discussed at length with daughter. I discussed that the rehabilitation and the renal failure will be the limiting consideration for quality of life. Regarding the lungs, it may be a small obstacle, but over long-term would not limit the patient's most instance with neurologic status as stated by the neurologist. Patient's daughter is asking for comfort care. I went over multiple issues with her and she seems to know the rationale and believe that this is the best treatment for him. REVIEW OF SYSTEMS: Cannot get as he is alerted. OBJECTIVE VITAL SIGNS: Afebrile. Vital signs noted per electronic record. GENERAL: No acute distress, alert and not oriented likely. HEENT: Normocephalic, atraumatic. NECK: Supple. Throat midline. LUNGS: Bilateral air entry, . CARDIOVASCULAR: S1 and S2. No murmurs, rubs, or gallops. ABDOMEN: Soft, nontender. EXTREMITIES: No clubbing, no cyanosis. There is 1 to 2+ edema. INTEGUMENT: No rash. No purpura. LABS: Potassium 4.4, BUN 66, and creatinine 3.8. White count 12, hematocrit 33, and platelets 250. IMPRESSION AND PLAN 1. Acute respiratory failure, intubated. 2. Encephalopathy, possible dementia with superimposed delirium. 3. Toxic metabolic encephalopathy. 4. Cdtlj-hv-habqugx kidney failure. 5. Staphylococcal pneumonia. 6. Other medical conditions per chart. At this time, we will continue the patient . Ventilator support. Long discussion with the daughter greater than 40 minutes to clarify issues, given some misconstrued information. Daughter finds it reasonable to terminate life support tomorrow. There is an extensive chance that patient maybe able to breathe as he did not have a chronic lung disease diagnosed prior, even though he is a 20-year smoker. If he survives, patient will be arranged for hospice at a facility. Greater than 40 minutes of direct care today as well as evaluation and conversation. Job#: [id number] MOISES
[2018-03-23] VITALS (22 sets, daily range): BP systolic 87–150; BP diastolic 39–92
[2018-03-23] MEDS: MORPHINE SULFATE 2 MG/ML SYR IV PRN ×2 (01:51→12:19)
[2018-03-23] MEDS: ALBUTEROL/IPRATROPIUM 3 ML NEB NEB SCH ×3 (02:20→14:00)
[2018-03-23] MEDS ORDERED: METHYLPREDNISOLONE SOD SUCC 125 MG/2ML VIAL IV ONE (02:45)
--- NOTE | 2018-03-23 04:15 | Progress Note ---
DATE: March 23, 2018 PULMONARY MEDICINE PROGRESS NOTE SUBJECTIVE: Mr. Gomez was seen and examined at bedside. Long discussion yesterday, and as of now there have been no changes in family opinion. They seem to be leaning towards palliative withdrawal of life support and Hospice. The patient remains mobile in bed, slightly restless. He still remains with very dense renal failure. No other changes in hemodynamics and no changes in temperature that is remarkable. REVIEW OF SYSTEMS: Cannot get as he is intubated. OBJECTIVE VITALS: Afebrile. Vital signs noted per electronic record. GENERAL: In no acute distress. Alert and altered. He is restless in bed. HEENT: Normocephalic and atraumatic. NECK: Supple. Throat midline. LUNGS: Bilateral air entry. Rare rhonchi. Mildly decreased air entry, mostly clear. CARDIOVASCULAR: S1 and S2. No murmurs, rubs or gallops. ABDOMEN: Soft and nontender. EXTREMITIES: No clubbing. No cyanosis. There is no edema. INTEGUMENT: No rash. No purpura. LABS AND RADIOLOGY: These are pending. IMPRESSION AND PLAN 1. Acute respiratory failure, intubated. 2. Chronic smoking, 24-pack years, possible chronic obstructive pulmonary disease. 3. Encephalopathy, type 2 metabolic encephalopathy superimposed on probably very mild dementia. 4. Staphylococcal pneumonia. 5. Urinary tract infection. 6. Joels-ic-wsphymn kidney failure. Continue to manage the patient's behavior as safe. The patient is intubated at this time, and family to consider palliative withdrawal and extubation tomorrow. The patient may or may not need Hospice. Will give 1 dose of steroids today. Continue bronchodilators which are scheduled. Will follow up closely given the new events with apparent resolution of possible end of care directive. Job#: [id number] SHOSHANA
[2018-03-23 05:05] LABS: BASOPHILS % 0.2 % (0.0-1.0); EOSINOPHILS # (AUTO) 0.1 (0.0-0.4); EOSINOPHILS % 0.7 % (0.0-6.0); HEMATOCRIT 31.2 % (38.2-49.6); HEMOGLOBIN 9.8 g/dL (14.0-18.0); LYMPHOCYTES # (AUTO) 1.3 (1.0-3.2); LYMPHOCYTES % 9.9 % (18.0-39.1); MEAN CORPUSCULAR HEMOGLOBIN 30.1 pg (28-32); MEAN CORPUSCULAR HGB CONC 31.4 g/dL (31-35); MEAN CORPUSCULAR VOLUME 95.7 fL (81-99); MONOCYTES # (AUTO) 1.1 (0.2-0.8); MONOCYTES % 8.3 % (4.4-11.3); NEUTROPHILS # (AUTO) 10.2 (2.1-6.9); NEUTROPHILS % 76.1 % (38.7-80.0); PLATELET COUNT 265 x10e3/uL (140-360); RED BLOOD COUNT 3.26 x10e6/uL (4.3-5.7); RED CELL DISTRIBUTION WIDTH 13.8 % (11.7-14.4)
[2018-03-23 05:32] LABS: ALBUMIN/GLOBULIN RATIO 0.4 (0.8-2.0)
[2018-03-23 05:45] LABS: CREATININE, SERUM 6.08 mg/dL (0.72-1.25)
[2018-03-23] MEDS: PANTOPRAZOLE 40 MG 10ML VIAL IV SCH (08:40)
[2018-03-23] MEDS: CYANOCOBALAMIN INJ 1,000 MCG/ML VIAL IM SCH (08:40)
[2018-03-23] MEDS: AMLODIPINE BESYLATE 10 MG TAB PO SCH (08:41)
[2018-03-23] MEDS: BALSAM PERU/CASTOR OIL 60 GM OINT...G. TP SCH (08:41)
[2018-03-23] MEDS: MUPIROCIN 2% OINT 22 GM TUBE TOP SCH (08:41)
[2018-03-23] MEDS: ASPIRIN 81 MG CHEW TAB PEG SCH (08:41)
[2018-03-23] MEDS: THIAMINE HCL 100 MG TAB PO SCH (08:41)
[2018-03-23] MEDS: LABETALOL HCL 5 MG/ML 20ML VIAL IV SCH (09:00)
[2018-03-23] MEDS ORDERED: MORPHINE SULFATE 2 MG/ML SYR IV PRN ×2 (13:25→15:00)
[2018-03-23] MEDS ORDERED: MORPHINE SULFATE 2 MG/ML SYR ONE (13:43)
[2018-03-23] MEDS ORDERED: LORAZEPAM INJ 2 MG/ML VIAL IV PRN (15:00)
[2018-03-23] MEDS ORDERED: HALOPERIDOL LACTATE 5 MG/ML VIAL IV PRN (17:30)
--- OUTSIDE RECORDS SUMMARY | 2018-03-24 07:52 | XMS REPORT | Clinical Summary ---
Author Author JOHN [facility] Address Unknown Phone Unavailable Care Team Providers Care Measurement And Verification Engineer Name Role Phone PCP Unavailable Allergies Not on File Current Medications Not on file Active Problems Not on file Social History Tobacco Use Types Packs/Day Years Used Date Never Assessed Sex Assigned at Date Recorded Not on file Last Filed Vital Signs Not on file Plan of Treatment Not on file Results Not on fileafter 03/04/2017
--- OUTSIDE RECORDS SUMMARY | 2018-03-24 07:55 | XMS REPORT | Clinical Summary ---
Author Author JOHN [facility] Address Unknown Phone Unavailable Care Team Providers Care Decorative Engraver Apprentice Name Role Phone PCP Unavailable Allergies Not on File Current Medications Not on file Active Problems Not on file Social History Tobacco Use Types Packs/Day Years Used Date Never Assessed Sex Assigned at Date Recorded Not on file Last Filed Vital Signs Not on file Plan of Treatment Not on file Results Not on fileafter 03/04/2017
== END 2018-03-23 19:15 | disposition hospice, inpatient (51) | DRG 870 ==
LOC: ER 19:20 → ERHOLD 23:13 → MED/SURG2 03-06 01:00 → OBSVTOIN 03-07 07:28 → IMCU 03-09 12:10 → ICU 03-09 19:57
PROVIDERS: ADMIT Internal Medicine; ATTEND Internal Medicine
PROC: 5A1955Z Respiratory Ventilation, Greater than 96 Consecutive Hours (ICD-10-PCS; principal; 2018-03-09)
PROC: 0BH17EZ Insertion of Endotracheal Airway into Trachea, Via Natural or Artificial Opening (ICD-10-PCS; 2018-03-09)
PROC: 5A1D70Z Performance of Urinary Filtration, Intermittent, Less than 6 Hours Per Day (ICD-10-PCS; 2018-03-17)
PROC: 02HV33Z Insertion of Infusion Device into Superior Vena Cava, Percutaneous Approach (ICD-10-PCS; 2018-03-17)
PROC: B548ZZA Ultrasonography of Superior Vena Cava, Guidance (ICD-10-PCS; 2018-03-17)
PROC: 5A1D70Z Performance of Urinary Filtration, Intermittent, Less than 6 Hours Per Day (ICD-10-PCS; 2018-03-19)
PROC: 5A1D70Z Performance of Urinary Filtration, Intermittent, Less than 6 Hours Per Day (ICD-10-PCS; 2018-03-20)
PROC: 5A1D70Z Performance of Urinary Filtration, Intermittent, Less than 6 Hours Per Day (ICD-10-PCS; 2018-03-21)
DX: A41.9 Sepsis, unspecified organism (principal); J69.0 Pneumonitis due to inhalation of food and vomit; J96.21 Acute and chronic respiratory failure with hypoxia; J96.01 Acute respiratory failure with hypoxia; J15.211 Pneumonia due to Methicillin susceptible Staphylococcus aureus; G92 Toxic encephalopathy; R65.21 Severe sepsis with septic shock; N17.0 Acute kidney failure with tubular necrosis; I16.1 Hypertensive emergency; N17.9 Acute kidney failure, unspecified; G45.9 Transient cerebral ischemic attack, unspecified; N18.4 Chronic kidney disease, stage 4 (severe); E87.2 Acidosis; F05 Delirium due to known physiological condition; N39.0 Urinary tract infection, site not specified; E66.3 Overweight; E03.9 Hypothyroidism, unspecified; Z88.5 Allergy status to narcotic agent; M10.9 Gout, unspecified; F29 Unspecified psychosis not due to a substance or known physiological condition; F03.90 Unspecified dementia, unspecified severity, without behavioral disturbance, psychotic disturbance, mood disturbance, and anxiety; Z87.891 Personal history of nicotine dependence; R22.1 Localized swelling, mass and lump, neck; J44.9 Chronic obstructive pulmonary disease, unspecified; Z68.26 Body mass index [BMI] 26.0-26.9, adult; I12.9 Hypertensive chronic kidney disease with stage 1 through stage 4 chronic kidney disease, or unspecified chronic kidney disease; L89.152 Pressure ulcer of sacral region, stage 2
CPT/HCPCS: 31500; 36415; 36556; 36600; 70450; 70544; 70547; 70551; 71045; 71046; 74018; 74470; 76770; 76937; 80048; 80053; 80061; 80076; 80202; 80307; 80320; 81001; 82140; 82550; 82553; 82570; 82607; 82805; 82948; 83735; 83880; 84100; 84300; 84443; 84484; 85025; 85610; 85730; 86592; 86704; 86706; 87070; 87086; 87186; 87205; 87340; 90962; 93005; 93306; 93880; 94002; 94003; 94640; 94660; 95816; 96361; 97139; 99284; C1769; G0378; J0360; J0456; J0692; J1630; J1644; J1650; J1940; J1956; J2060; J2150; J2250; J2270; J2930; J3370; J3411; J3420; J3480; J7030; J7050